=== PATIENT | female | born 1960 | race Caucasian/White ===

== ENCOUNTER 2018-05-27 14:14 | Emergency (ER) | payer MEDICAID ==
[~2018-05-27] VITALS: Ht 289.6 cm; Wt 77.0 kg
[~2018-05-27 14:14] MED LIST: ATOR10TA87 PO; BAC10T PO; BENA5TAB6 PO; CITA40TA17 PO; DILT180C89 PO; FEXO-124 PO; GABA-532 PO; HYDR-565 PO; LEVO500T2 PO; LEVO75TA7 PO; LIDO700A5 TOP; MELO-100 PO; METF10004 PO; METR500T PO; MIRT15TA8 PO; OMEP20CA10 PO; PROC5TAB56 PO; SITA100T11 PO
[2018-05-27] MEDS ORDERED: LORazepam 2 mg/ml vial IV ONE (14:35)
[2018-05-27] MEDS ORDERED: normal saline 1000ML IV soln IVB ONE (14:35)
[2018-05-27] MEDS ORDERED: methylPREDNISolone sod succ 125mg/2ml vial IV ONE (14:35)
[2018-05-27] MEDS ORDERED: albuterol 2.5 MG/3 ML nebule NEB ONE (14:35)
[2018-05-27] MEDS ORDERED: morphine 4 MG/ML inj SYRINge IV ONE (14:35)
[2018-05-27 14:36] LABS: BASOPHILS % (AUTO) 0.1 % (0-1); EOSINOPHILS # (AUTO) 0.1 X10'3 (0-0.9); HEMATOCRIT 40.1 % (35.0-45.0); HEMOGLOBIN 13.5 g/dl (12.0-16.0); LYMPHOCYTES % (AUTO) 20.8 % (21-51); MEAN CORPUSCULAR HEMOGLOBIN 29.5 PG (27.0-31.0); MEAN CORPUSCULAR HGB CONC 33.7 % (33.0-36.5); MEAN CORPUSCULAR VOLUME 87.4 FL (78-98); MEAN PLATELET VOLUME 8.8 FL (7.4-10.4); MONOCYTES # (AUTO) 0.7 X10'3 (0-0.9); MONOCYTES % (AUTO) 7.5 % (2-12); NEUTROPHILS # (AUTO) 6.8 X10'3 (1.8-7.7); NEUTROPHILS % (AUTO) 70.6 % (42-75); PLATELET COUNT 232 X10'3 (140-440); RED BLOOD COUNT 4.59 X10'6 (4.20-5.60); RED CELL DISTRIBUTION WIDTH 17.1 % (11.5-14.5); WHITE BLOOD COUNT 9.7 X10'3 (4.5-11.0)
[2018-05-27 14:46] LABS: PARTIAL THROMBOPLASTIN TIME 24 SECONDS (22-32); PROTHROMBIN TIME 10.2 SECONDS (9.0-12.0)
[2018-05-27 14:52] LABS: ALANINE AMINOTRANSFERASE 23 U/L (12-78); ALBUMIN 3.3 G/DL (3.4-5.0); ALBUMIN/GLOBULIN RATIO 1.1 (1.1-1.5); ALKALINE PHOSPHATASE 126 IU/L (46-116); ANION GAP 7 (8-16); ASPARTATE AMINO TRANSFERASE 16 U/L (10-37); BILIRUBIN,TOTAL 0.3 MG/DL (0.1-1.0); BLOOD UREA NITROGEN 16 MG/DL (7-18); BUN/CREATININE RATIO 13.7 (6.6-38.0); CALCIUM 8.5 MG/DL (8.5-10.1); CHLORIDE 107 MMOL/L (99-107); CREATININE 1.17 MG/DL (0.40-0.90); GLUCOSE 212 MG/DL (70-104); POTASSIUM 4.2 MMOL/L (3.5-5.1); SODIUM 139 MMOL/L (135-145); TOTAL PROTEIN 6.4 G/DL (6.4-8.2); eGFR 48 ML/MIN
[2018-05-27 15:03] VITALS: BP 116/82
== END 2018-05-27 16:46 | disposition home or self-care (01) ==
LOC: ER 14:14
DX: R07.9 Chest pain, unspecified (principal); J45.909 Unspecified asthma, uncomplicated; G43.909 Migraine, unspecified, not intractable, without status migrainosus; E78.00 Pure hypercholesterolemia, unspecified; I10 Essential (primary) hypertension; E11.9 Type 2 diabetes mellitus without complications; K21.9 Gastro-esophageal reflux disease without esophagitis; Z98.890 Other specified postprocedural states; Z56.0 Unemployment, unspecified
CPT/HCPCS: 36415; 71045; 80053; 84484; 85025; 85610; 85730; 93005; 94640; 94760; 96374; 96375; 99285; J2060; J2270; J2930; J7030

== ENCOUNTER 2018-07-28 21:45 | Emergency (ER) | payer MEDICAID ==
[~2018-07-28] VITALS: Ht 162.6 cm; Wt 79.0 kg
[~2018-07-28 21:45] MED LIST changes: +METF-438 PO; -METF10004 PO
[2018-07-28 21:47] VITALS: BP 148/85
[2018-07-28] MEDS ORDERED: SILV50CR31 TP (22:03)
[2018-07-28] MEDS ORDERED: silver sulfadiazine cream 400gm jar TP ONE (22:05)
[2018-07-28] MEDS ORDERED: ketorolac trometh inj. 60 MG/2 ML VIAL IM ONE (22:05)
== END 2018-07-28 22:20 | disposition home or self-care (01) ==
LOC: ER 21:46
DX: T21.22XA Burn of second degree of abdominal wall, initial encounter (principal); E78.00 Pure hypercholesterolemia, unspecified; I10 Essential (primary) hypertension; J45.909 Unspecified asthma, uncomplicated; K21.9 Gastro-esophageal reflux disease without esophagitis; E11.9 Type 2 diabetes mellitus without complications; G89.29 Other chronic pain; Z98.890 Other specified postprocedural states; Z56.0 Unemployment, unspecified; Z88.0 Allergy status to penicillin; Z79.899 Other long term (current) drug therapy; X08.8XXA Exposure to other specified smoke, fire and flames, initial encounter; Y93.G3 Activity, cooking and baking; Y92.090 Kitchen in other non-institutional residence as the place of occurrence of the external cause; Y99.8 Other external cause status
CPT/HCPCS: 96372; 99283; J1885

== ENCOUNTER 2018-08-02 18:23 | Emergency (ER) | payer MEDICAID ==
[~2018-08-02] VITALS: Ht 162.6 cm; Wt 79.0 kg
[~2018-08-02 18:23] MED LIST changes: +HYDR-4353 PO; -HYDR-565 PO; +SILV50CR31 TP
[2018-08-02 18:51] LABS: URINE HCG NEGATIVE (NEG)
[2018-08-02 18:56] LABS: BASOPHILS % (AUTO) 0.6 % (0-1); EOSINOPHILS # (AUTO) 0.1 X10'3 (0-0.9); EOSINOPHILS % (AUTO) 0.9 % (0-6); HEMATOCRIT 42.3 % (35.0-45.0); HEMOGLOBIN 14.1 g/dl (12.0-16.0); LYMPHOCYTES # (AUTO) 2.2 X10'3 (1.1-4.8); LYMPHOCYTES % (AUTO) 30.5 % (21-51); MEAN CORPUSCULAR HEMOGLOBIN 30.4 PG (27.0-31.0); MEAN CORPUSCULAR HGB CONC 33.4 % (33.0-36.5); MEAN CORPUSCULAR VOLUME 90.9 FL (78-98); MEAN PLATELET VOLUME 8.8 FL (7.4-10.4); MONOCYTES # (AUTO) 0.6 X10'3 (0-0.9); MONOCYTES % (AUTO) 8.9 % (2-12); NEUTROPHILS # (AUTO) 4.2 X10'3 (1.8-7.7); NEUTROPHILS % (AUTO) 59.1 % (42-75); PLATELET COUNT 229 X10'3 (140-440); RED BLOOD COUNT 4.66 X10'6 (4.20-5.60); RED CELL DISTRIBUTION WIDTH 13.6 % (11.5-14.5); WHITE BLOOD COUNT 7.1 X10'3 (4.5-11.0)
[2018-08-02 18:57] LABS: PROTHROMBIN TIME 10.4 SECONDS (9.0-12.0)
[2018-08-02 19:05] LABS: ALANINE AMINOTRANSFERASE 27 U/L (12-78); ALBUMIN 3.7 G/DL (3.4-5.0); ALBUMIN/GLOBULIN RATIO 1.1 (1.1-1.5); ALKALINE PHOSPHATASE 125 IU/L (46-116); ANION GAP 12 (8-16); ASPARTATE AMINO TRANSFERASE 18 U/L (10-37); BILIRUBIN,TOTAL 0.4 MG/DL (0.1-1.0); BLOOD UREA NITROGEN 16 MG/DL (7-18); BUN/CREATININE RATIO 14.2 (6.6-38.0); CALCIUM 9.1 MG/DL (8.5-10.1); CHLORIDE 108 MMOL/L (99-107); CREATININE 1.13 MG/DL (0.40-0.90); GLUCOSE 151 MG/DL (70-104); POTASSIUM 3.3 MMOL/L (3.5-5.1); SODIUM 145 MMOL/L (135-145); TOTAL CARBON DIOXIDE 24.7 MMOL/L (24-32); TOTAL PROTEIN 7.2 G/DL (6.4-8.2); eGFR 50 ML/MIN
[2018-08-02 19:14] LABS: COLOR,URINE YELLOW (Yellow); GLUCOSE, URINE NEGATIVE (Neg); KETONES,URINE NEGATIVE (Neg); LEUKOCYTE ESTERASE ,URINE SMALL (Neg); NITRITES, URINE NEGATIVE (Neg); OCCULT BLOOD,URINE NEGATIVE (Neg); PROTEIN,URINE TRACE mg/dl (Neg); UA COLLECTION TYPE CLN CATCH MIDSTREAM; UROBILINOGEN,URINE 0.2 E.U/dL (0.2-1.0)
[2018-08-02 19:15] LABS: CLARITY,URINE SLIGHTLY CLOUDY (Clear)
[2018-08-02] MEDS ORDERED: TOPI25TA49 (19:17)
[2018-08-02] MEDS ORDERED: ALOG25TA2 (19:17)
[2018-08-02] MEDS ORDERED: SUMA100T16 (19:17)
[2018-08-02] MEDS ORDERED: AMIT10TA6 (19:18)
[2018-08-02 19:22] LABS: BACTERIA,URINE 1+ /HPF (Neg); MUCUS STRANDS MANY /LPF (Neg); RBC,URINE NONE SEEN /HPF (0-2); SQUAMOUS EPITHELIAL CELL,UR MANY /LPF (FEW)
[2018-08-02] MEDS ORDERED: morphine 4 MG/ML inj SYRINge IV PRN (19:45)
[2018-08-02] MEDS ORDERED: normal saline 1000ML IV soln IVB ONE (19:45)
[2018-08-02] MEDS ORDERED: ondansetron/PF 4mg/2ml inj IV ONE (19:45)
[2018-08-02] MEDS ORDERED: metoclopramide 5 mg/ml inj IV ONE (19:45)
[2018-08-02 19:58] LABS: LIPASE 170 U/L (73-393)
[2018-08-02] MEDS ORDERED: SUCR1ORA2 PO (21:46)
[2018-08-02 22:00] VITALS: BP 146/93
== END 2018-08-02 22:07 | disposition home or self-care (01) ==
LOC: ER 18:24
DX: K29.80 Duodenitis without bleeding (principal); R10.84 Generalized abdominal pain; G43.909 Migraine, unspecified, not intractable, without status migrainosus; E78.00 Pure hypercholesterolemia, unspecified; I10 Essential (primary) hypertension; J45.909 Unspecified asthma, uncomplicated; K21.9 Gastro-esophageal reflux disease without esophagitis; G89.29 Other chronic pain; Z56.0 Unemployment, unspecified; Z98.890 Other specified postprocedural states; Z79.899 Other long term (current) drug therapy; Z88.0 Allergy status to penicillin
CPT/HCPCS: 36415; 74176; 80053; 81001; 81025; 83690; 85025; 85610; 96361; 96374; 96375; 99285; J2270; J2405; J2765; J7030

== ENCOUNTER 2018-12-18 15:19 | Outpatient (CLI) | payer MEDICAID ==
[~2018-12-18 15:19] MED LIST changes: +ALOG25TA2; +AMIT10TA6; -BAC10T PO; -LEVO500T2 PO; -LIDO700A5 TOP; -MELO-100 PO; -METR500T PO; -OMEP20CA10 PO; -SILV50CR31 TP; -SITA100T11 PO; +SUCR1ORA2 PO; +SUMA100T16; +TOPI25TA49
[2018-12-18 16:08] LABS: BASOPHILS # (AUTO) 0.1 X10'3 (0-0.2); BASOPHILS % (AUTO) 0.7 % (0-1); EOSINOPHILS # (AUTO) 1.5 X10'3 (0-0.9); EOSINOPHILS % (AUTO) 16.1 % (0-6); HEMATOCRIT 42.8 % (35.0-45.0); HEMOGLOBIN 14.1 g/dl (12.0-16.0); LYMPHOCYTES # (AUTO) 2.7 X10'3 (1.1-4.8); LYMPHOCYTES % (AUTO) 28.7 % (21-51); MEAN CORPUSCULAR HEMOGLOBIN 30.4 PG (27.0-31.0); MEAN CORPUSCULAR VOLUME 92.4 FL (78-98); MEAN PLATELET VOLUME 8.8 FL (7.4-10.4); MONOCYTES # (AUTO) 0.7 X10'3 (0-0.9); MONOCYTES % (AUTO) 6.9 % (2-12); NEUTROPHILS # (AUTO) 4.5 X10'3 (1.8-7.7); NEUTROPHILS % (AUTO) 47.6 % (42-75); PLATELET COUNT 233 X10'3 (140-440); RED BLOOD COUNT 4.64 X10'6 (4.20-5.60); RED CELL DISTRIBUTION WIDTH 14.6 % (11.5-14.5); WHITE BLOOD COUNT 9.5 X10'3 (4.5-11.0)
== END 2018-12-18 23:59 | disposition home or self-care (01) ==
LOC: LAB 15:19
PROVIDERS: ATTEND Physician Assistant
DX: M25.451 Effusion, right hip (principal); R00.0 Tachycardia, unspecified; I10 Essential (primary) hypertension; J45.909 Unspecified asthma, uncomplicated; E11.9 Type 2 diabetes mellitus without complications; K21.9 Gastro-esophageal reflux disease without esophagitis; Z88.0 Allergy status to penicillin; Z91.018 Allergy to other foods
CPT/HCPCS: 36415; 85025

== ENCOUNTER 2019-05-14 13:19 | Emergency (ER) | payer MEDICAID ==
[~2019-05-14] VITALS: Ht 162.6 cm; Wt 68.2 kg
[2019-05-14 13:59] VITALS: BP 166/104
[2019-05-14] MEDS ORDERED: acetaminophen 325mg tablet PO ONE (16:00)
== END 2019-05-14 17:01 | disposition home or self-care (01) ==
LOC: ER 13:20
DX: S70.01XA Contusion of right hip, initial encounter (principal); G43.909 Migraine, unspecified, not intractable, without status migrainosus; I49.9 Cardiac arrhythmia, unspecified; E78.00 Pure hypercholesterolemia, unspecified; I10 Essential (primary) hypertension; J45.909 Unspecified asthma, uncomplicated; K21.9 Gastro-esophageal reflux disease without esophagitis; E11.9 Type 2 diabetes mellitus without complications; E07.9 Disorder of thyroid, unspecified; G89.29 Other chronic pain; F32.9 Major depressive disorder, single episode, unspecified; Z98.890 Other specified postprocedural states; Z88.0 Allergy status to penicillin; Z79.84 Long term (current) use of oral hypoglycemic drugs; Z79.899 Other long term (current) drug therapy; Z56.0 Unemployment, unspecified; Y04.0XXA Assault by unarmed brawl or fight, initial encounter; Y93.89 Activity, other specified; Y92.89 Other specified places as the place of occurrence of the external cause; Y99.8 Other external cause status
CPT/HCPCS: 71045; 93005; 99283

== ENCOUNTER 2019-07-01 15:40 | Emergency (ER) | payer MEDICAID ==
[~2019-07-01] VITALS: Ht 162.6 cm; Wt 71.8 kg
[2019-07-01 15:52] VITALS: BP 121/88
[2019-07-01] MEDS ORDERED: HYDR-3965 PO (17:09)
[2019-07-01] MEDS ORDERED: HYDROcodone/acetaminophen 5mg/325mg tablet PO ONE (17:25)
== END 2019-07-01 17:58 | disposition home or self-care (01) ==
LOC: ER 15:41
DX: S62.525A Nondisplaced fracture of distal phalanx of left thumb, initial encounter for closed fracture (principal); G43.909 Migraine, unspecified, not intractable, without status migrainosus; E78.00 Pure hypercholesterolemia, unspecified; I10 Essential (primary) hypertension; J45.909 Unspecified asthma, uncomplicated; K21.9 Gastro-esophageal reflux disease without esophagitis; E11.9 Type 2 diabetes mellitus without complications; G89.29 Other chronic pain; Z56.0 Unemployment, unspecified; Z98.890 Other specified postprocedural states; Z88.0 Allergy status to penicillin; Z79.899 Other long term (current) drug therapy; W53.19XA Other contact with rat, initial encounter; Y93.89 Activity, other specified; Y92.89 Other specified places as the place of occurrence of the external cause; Y99.9 Unspecified external cause status
CPT/HCPCS: 29130; 73140; 99283

== ENCOUNTER 2019-08-25 08:47 | Emergency (ER) | payer MEDICAID ==
[~2019-08-25] VITALS: Ht 162.6 cm; Wt 69.0 kg
[2019-08-25] MEDS ORDERED: normal saline 1000ML IV soln IVB ONE (09:30)
[2019-08-25] MEDS ORDERED: diphenhydrAMINE 50 mg/ml inj IV ONE (09:30)
[2019-08-25] MEDS ORDERED: proCHLORperazine 10 MG/2 ml inj IV ONE (09:30)
[2019-08-25 12:26] VITALS: BP 131/99
== END 2019-08-25 12:26 | disposition home or self-care (01) ==
LOC: ER 08:47
DX: G43.909 Migraine, unspecified, not intractable, without status migrainosus (principal); E78.00 Pure hypercholesterolemia, unspecified; I10 Essential (primary) hypertension; J45.909 Unspecified asthma, uncomplicated; K21.9 Gastro-esophageal reflux disease without esophagitis; E11.9 Type 2 diabetes mellitus without complications; G89.29 Other chronic pain; F32.9 Major depressive disorder, single episode, unspecified; Z98.890 Other specified postprocedural states; Z56.0 Unemployment, unspecified; Z88.0 Allergy status to penicillin; Z79.84 Long term (current) use of oral hypoglycemic drugs; Z79.899 Other long term (current) drug therapy
CPT/HCPCS: 93005; 96374; 96375; 99283; J0780; J1200; J7030

== ENCOUNTER 2019-08-28 11:13 | Emergency (ER) | payer MEDICAID ==
[~2019-08-28] VITALS: Ht 162.6 cm; Wt 71.4 kg
[2019-08-28] MEDS ORDERED: normal saline 1000ML IV soln IVB ONE (12:45)
[2019-08-28] MEDS ORDERED: ondansetron/PF 4mg/2ml inj IV ONE (12:45)
[2019-08-28] MEDS ORDERED: LORazepam 2 mg/ml vial IV ONE (12:45)
[2019-08-28] MEDS ORDERED: HYDR-3964 PO (12:52)
[2019-08-28] MEDS ORDERED: METF500T PO (12:52)
[2019-08-28 13:44] LABS: BASOPHILS % (AUTO) 0.4 % (0-1); EOSINOPHILS % (AUTO) 0.1 % (0-6); HEMATOCRIT 43.2 % (35.0-45.0); HEMOGLOBIN 14.2 g/dl (12.0-16.0); LYMPHOCYTES % (AUTO) 10.7 % (21-51); MEAN CORPUSCULAR HEMOGLOBIN 30.9 PG (27.0-31.0); MEAN CORPUSCULAR VOLUME 93.6 FL (78-98); MEAN PLATELET VOLUME 8.4 FL (7.4-10.4); MONOCYTES # (AUTO) 0.4 X10'3 (0-0.9); MONOCYTES % (AUTO) 4.2 % (2-12); NEUTROPHILS # (AUTO) 8.3 X10'3 (1.8-7.7); NEUTROPHILS % (AUTO) 84.6 % (42-75); PLATELET COUNT 220 X10'3 (140-440); RED BLOOD COUNT 4.62 X10'6 (4.20-5.60); RED CELL DISTRIBUTION WIDTH 15.5 % (11.5-14.5); WHITE BLOOD COUNT 9.8 X10'3 (4.5-11.0)
[2019-08-28 13:59] LABS: ALANINE AMINOTRANSFERASE 39 U/L (12-78); ALBUMIN 3.6 G/DL (3.4-5.0); ALKALINE PHOSPHATASE 110 IU/L (46-116); ANION GAP 10 (8-16); ASPARTATE AMINO TRANSFERASE 14 U/L (10-37); BILIRUBIN,TOTAL 0.3 MG/DL (0.1-1.0); BLOOD UREA NITROGEN 17 MG/DL (7-18); BUN/CREATININE RATIO 17.5 (6.6-38.0); CALCIUM 9.3 MG/DL (8.5-10.1); CHLORIDE 107 MMOL/L (99-107); CREATININE 0.97 MG/DL (0.40-0.90); GLUCOSE 202 MG/DL (70-104); POTASSIUM 4.3 MMOL/L (3.5-5.1); SODIUM 143 MMOL/L (135-145); TOTAL CARBON DIOXIDE 26.2 MMOL/L (24-32); TOTAL PROTEIN 7.1 G/DL (6.4-8.2); eGFR 59 ML/MIN
[2019-08-28 14:07] LABS: MAGNESIUM 1.1 MG/DL (1.5-2.4)
[2019-08-28] MEDS ORDERED: iohexol 350MG/ML 100ml bottle IV ONE (14:13)
[2019-08-28] MEDS ORDERED: MECL12.584 PO (17:05)
[2019-08-28 17:48] VITALS: BP 107/65
[2019-08-29] MEDS ORDERED: DIAZ2TAB PO (04:52)
[2019-08-29] MEDS ORDERED: MAGN400C PO (04:52)
== END 2019-08-28 17:52 | disposition home or self-care (01) ==
LOC: ER 11:13
DX: R42 Dizziness and giddiness (principal); R11.2 Nausea with vomiting, unspecified; H53.8 Other visual disturbances; G89.29 Other chronic pain; G43.909 Migraine, unspecified, not intractable, without status migrainosus; E78.00 Pure hypercholesterolemia, unspecified; I10 Essential (primary) hypertension; J45.909 Unspecified asthma, uncomplicated; K21.9 Gastro-esophageal reflux disease without esophagitis; E11.9 Type 2 diabetes mellitus without complications; F32.9 Major depressive disorder, single episode, unspecified; F10.99 Alcohol use, unspecified with unspecified alcohol-induced disorder; Z98.890 Other specified postprocedural states; Z56.0 Unemployment, unspecified; Z88.0 Allergy status to penicillin; Z79.84 Long term (current) use of oral hypoglycemic drugs; Z79.899 Other long term (current) drug therapy; Y90.9 Presence of alcohol in blood, level not specified
CPT/HCPCS: 36415; 70551; 71045; 71260; 80053; 82948; 83735; 83880; 84484; 85025; 93005; 96361; 96374; 96375; 99284; J2060; J2405; J7030; Q9967; 70496; 70498

== ENCOUNTER 2019-08-29 01:07 | Emergency (ER) | payer MEDICAID ==
[~2019-08-29] VITALS: Ht 170.2 cm; Wt 64.0 kg
[~2019-08-29 01:07] MED LIST changes: -ALOG25TA2; -AMIT10TA6; +HYDR-3964 PO; -HYDR-4353 PO; +MECL12.584 PO; -METF-438 PO; +METF500T PO; -PROC5TAB56 PO; -SUCR1ORA2 PO; -SUMA100T16; -TOPI25TA49
[2019-08-29] MEDS ORDERED: diphenhydrAMINE 50 mg/ml inj IV ONE (01:15)
[2019-08-29] MEDS ORDERED: benztropine 1mg tablet PO ONE (01:52)
--- NOTE | 2019-08-29 02:18 | NUR ---
PT NOTES RESOLVING SYMPTOMS.
[2019-08-29] MEDS ORDERED: magnesium 2GM in 50ml NS 50 ML IV ONE (02:35)
[2019-08-29] MEDS ORDERED: magnesium oxide 400mg tablet PO ONE (02:35)
[2019-08-29] MEDS ORDERED: diazepam 5mg tablet PO ONE (02:40)
[2019-08-29] MEDS ORDERED: niCARDipine-NS 40mg/200ml IVPB 200 ML IV PRN (02:41)
[2019-08-29] MEDS ORDERED: normal saline 1000ML IV soln IVB ONE (02:45)
--- NOTE | 2019-08-29 03:37 | NUR ---
pt falling asleep and o2 saturation dropped to 87% pt has sleep apnea and usually uses a cpap at home, pt placed on 2l o2 via nasal cannula to increase oxygen saturation during sleep, current saturation now 97%
[2019-08-29] MEDS ORDERED: MAGN400C PO (04:52)
[2019-08-29] MEDS ORDERED: DIAZ2TAB PO (04:52)
[2019-08-29 05:16] VITALS: BP 138/93
[2019-08-30] MEDS ORDERED: DIAZ5TAB PO (08:55)
== END 2019-08-29 05:43 | disposition home or self-care (01) ==
LOC: ER 01:08
DX: R42 Dizziness and giddiness (principal); R25.1 Tremor, unspecified; E83.42 Hypomagnesemia; I45.81 Long QT syndrome; G43.909 Migraine, unspecified, not intractable, without status migrainosus; E78.00 Pure hypercholesterolemia, unspecified; I10 Essential (primary) hypertension; J45.909 Unspecified asthma, uncomplicated; K21.9 Gastro-esophageal reflux disease without esophagitis; E11.9 Type 2 diabetes mellitus without complications; G89.29 Other chronic pain; Z56.0 Unemployment, unspecified; Z98.890 Other specified postprocedural states; Z88.0 Allergy status to penicillin; Z79.899 Other long term (current) drug therapy
CPT/HCPCS: 93005; 96365; 96366; 96375; 99284; J1200; J3475; J7030

== ENCOUNTER 2019-08-30 07:14 | Emergency (ER) | payer MEDICAID ==
[~2019-08-30] VITALS: Ht 162.6 cm; Wt 71.4 kg
[~2019-08-30 07:14] MED LIST changes: +ALOG25TA2; +AMIT10TA6; +DIAZ2TAB PO; +HYDR-4353 PO; +MAGN400C PO; +METF-438 PO; +PROC5TAB56 PO; +SUCR1ORA2 PO; +SUMA100T16; +TOPI25TA49
[2019-08-30 07:56] VITALS: BP 164/108
[2019-08-30 08:16] LABS: BASOPHILS # (AUTO) 0.1 X10'3 (0-0.2); BASOPHILS % (AUTO) 0.7 % (0-1); EOSINOPHILS % (AUTO) 0.4 % (0-6); HEMATOCRIT 40.3 % (35.0-45.0); HEMOGLOBIN 13.5 g/dl (12.0-16.0); LYMPHOCYTES # (AUTO) 2.4 X10'3 (1.1-4.8); LYMPHOCYTES % (AUTO) 23.3 % (21-51); MEAN CORPUSCULAR HEMOGLOBIN 30.8 PG (27.0-31.0); MEAN CORPUSCULAR HGB CONC 33.4 g/dL (33.0-36.5); MEAN CORPUSCULAR VOLUME 92.2 FL (78-98); MEAN PLATELET VOLUME 7.8 FL (7.4-10.4); MONOCYTES # (AUTO) 0.8 X10'3 (0-0.9); NEUTROPHILS # (AUTO) 6.8 X10'3 (1.8-7.7); NEUTROPHILS % (AUTO) 67.6 % (42-75); PLATELET COUNT 231 X10'3 (140-440); RED BLOOD COUNT 4.37 X10'6 (4.20-5.60); RED CELL DISTRIBUTION WIDTH 15.8 % (11.5-14.5); WHITE BLOOD COUNT 10.1 X10'3 (4.5-11.0)
[2019-08-30 08:29] LABS: ALANINE AMINOTRANSFERASE 30 U/L (12-78); ALBUMIN 3.1 G/DL (3.4-5.0); ALBUMIN/GLOBULIN RATIO 1.1 (1.1-1.5); ALKALINE PHOSPHATASE 95 IU/L (46-116); ANION GAP 11 (8-16); ASPARTATE AMINO TRANSFERASE 17 U/L (10-37); BILIRUBIN,TOTAL 0.4 MG/DL (0.1-1.0); BLOOD UREA NITROGEN 15 MG/DL (7-18); BUN/CREATININE RATIO 13.3 (6.6-38.0); CHLORIDE 110 MMOL/L (99-107); CREATININE 1.13 MG/DL (0.40-0.90); GLUCOSE 151 MG/DL (70-104); MAGNESIUM 1.5 MG/DL (1.5-2.4); POTASSIUM 4.4 MMOL/L (3.5-5.1); SODIUM 144 MMOL/L (135-145); TOTAL CARBON DIOXIDE 23.4 MMOL/L (24-32); eGFR 50 ML/MIN
[2019-08-30] MEDS ORDERED: DIAZ5TAB PO (08:55)
== END 2019-08-30 09:19 | disposition home or self-care (01) ==
LOC: ER 07:14
DX: F44.9 Dissociative and conversion disorder, unspecified (principal); G43.909 Migraine, unspecified, not intractable, without status migrainosus; E78.00 Pure hypercholesterolemia, unspecified; I10 Essential (primary) hypertension; J45.909 Unspecified asthma, uncomplicated; K21.9 Gastro-esophageal reflux disease without esophagitis; E11.9 Type 2 diabetes mellitus without complications; G89.29 Other chronic pain; F32.9 Major depressive disorder, single episode, unspecified; F10.99 Alcohol use, unspecified with unspecified alcohol-induced disorder; Z98.890 Other specified postprocedural states; Z56.0 Unemployment, unspecified; Z88.0 Allergy status to penicillin; Z91.018 Allergy to other foods; Z79.84 Long term (current) use of oral hypoglycemic drugs; Z79.899 Other long term (current) drug therapy; Y90.9 Presence of alcohol in blood, level not specified
CPT/HCPCS: 36415; 80053; 83735; 85025; 99283

== ENCOUNTER 2019-09-07 09:16 | Emergency (ER) | payer MEDICAID ==
[~2019-09-07] VITALS: Ht 162.6 cm; Wt 70.0 kg
[~2019-09-07 09:16] MED LIST changes: -ALOG25TA2; -AMIT10TA6; +DIAZ5TAB PO; -HYDR-4353 PO; -METF-438 PO; -PROC5TAB56 PO; -SUCR1ORA2 PO; -SUMA100T16; -TOPI25TA49
--- NOTE | 2019-09-07 10:01 | NUR ---
UPDATED PATIENT AWAITING TECH FOR SPLINT, HAVE ASKED TECH TO SPLINT X 3, GAVE NEW ICE BAG FOR PAIN
[2019-09-07 10:02] VITALS: BP 184/83
--- NOTE | 2019-09-07 10:03 | NUR ---
TECH IN ROOM, PLACING SPLINT
== END 2019-09-07 11:05 | disposition home or self-care (01) ==
LOC: ER 09:17
DX: M79.672 Pain in left foot (principal); G43.909 Migraine, unspecified, not intractable, without status migrainosus; E78.00 Pure hypercholesterolemia, unspecified; I10 Essential (primary) hypertension; J45.909 Unspecified asthma, uncomplicated; K21.9 Gastro-esophageal reflux disease without esophagitis; E11.9 Type 2 diabetes mellitus without complications; G89.29 Other chronic pain; Z56.0 Unemployment, unspecified; Z98.890 Other specified postprocedural states; Z88.0 Allergy status to penicillin; Z91.018 Allergy to other foods; Z79.899 Other long term (current) drug therapy
CPT/HCPCS: 73610; 99284

== ENCOUNTER 2019-09-17 09:11 | Outpatient (CLI) | payer MEDICAID ==
[2019-09-17 09:19] VITALS: BP 143/85
== END 2019-09-17 09:47 | disposition home or self-care (01) ==
LOC: ORTHO 09:11
PROVIDERS: ATTEND Orthopaedic Surgery
DX: M76.62 Achilles tendinitis, left leg (principal); G43.909 Migraine, unspecified, not intractable, without status migrainosus; I10 Essential (primary) hypertension; J45.909 Unspecified asthma, uncomplicated; K21.9 Gastro-esophageal reflux disease without esophagitis; E11.9 Type 2 diabetes mellitus without complications; G89.29 Other chronic pain; M54.5 Low back pain; F32.9 Major depressive disorder, single episode, unspecified; Z88.0 Allergy status to penicillin; Z91.018 Allergy to other foods; Z79.84 Long term (current) use of oral hypoglycemic drugs; Z79.899 Other long term (current) drug therapy
CPT/HCPCS: G0463

== ENCOUNTER 2019-11-01 10:51 | Emergency (ER) | payer MEDICAID ==
[~2019-11-01] VITALS: Ht 162.6 cm; Wt 80.0 kg
[2019-11-01 11:08] VITALS: BP 161/88
== END 2019-11-01 13:42 | disposition home or self-care (01) ==
LOC: ER 10:52
DX: S96.811A Strain of other specified muscles and tendons at ankle and foot level, right foot, initial encounter (principal); I10 Essential (primary) hypertension; J45.909 Unspecified asthma, uncomplicated; K21.9 Gastro-esophageal reflux disease without esophagitis; F32.9 Major depressive disorder, single episode, unspecified; E11.9 Type 2 diabetes mellitus without complications; G43.909 Migraine, unspecified, not intractable, without status migrainosus; E78.00 Pure hypercholesterolemia, unspecified; G89.29 Other chronic pain; Z98.890 Other specified postprocedural states; Z56.0 Unemployment, unspecified; Z88.0 Allergy status to penicillin; Z79.899 Other long term (current) drug therapy; Z79.84 Long term (current) use of oral hypoglycemic drugs; X50.1XXA Overexertion from prolonged static or awkward postures, initial encounter; Y93.89 Activity, other specified; Y92.89 Other specified places as the place of occurrence of the external cause; Y99.8 Other external cause status
CPT/HCPCS: 29515; 73610; 99284

== ENCOUNTER 2019-11-21 17:32 | Emergency (ER) | payer MEDICAID ==
[~2019-11-21] VITALS: Ht 162.6 cm; Wt 77.0 kg
[~2019-11-21 17:32] MED LIST changes: +MECL-183 PO; -MECL12.584 PO
[2019-11-21 18:32] LABS: BASOPHILS # (AUTO) 0.1 X10'3 (0-0.2); BASOPHILS % (AUTO) 1.4 % (0-1); EOSINOPHILS # (AUTO) 0.1 X10'3 (0-0.9); EOSINOPHILS % (AUTO) 0.6 % (0-6); HEMATOCRIT 40.2 % (35.0-45.0); HEMOGLOBIN 13.3 g/dl (12.0-16.0); LYMPHOCYTES % (AUTO) 18.4 % (21-51); MEAN CORPUSCULAR HEMOGLOBIN 30.2 PG (27.0-31.0); MEAN CORPUSCULAR HGB CONC 33.2 g/dL (33.0-36.5); MEAN CORPUSCULAR VOLUME 90.9 FL (78-98); MEAN PLATELET VOLUME 8.1 FL (7.4-10.4); MONOCYTES # (AUTO) 0.9 X10'3 (0-0.9); NEUTROPHILS # (AUTO) 7.7 X10'3 (1.8-7.7); NEUTROPHILS % (AUTO) 71.6 % (42-75); PLATELET COUNT 267 X10'3 (140-440); RED BLOOD COUNT 4.42 X10'6 (4.20-5.60); RED CELL DISTRIBUTION WIDTH 14.9 % (11.5-14.5); WHITE BLOOD COUNT 10.7 X10'3 (4.5-11.0)
[2019-11-21 18:38] LABS: ALANINE AMINOTRANSFERASE 34 U/L (12-78); ALBUMIN 3.8 G/DL (3.4-5.0); ALBUMIN/GLOBULIN RATIO 1.3 (1.1-1.5); ALKALINE PHOSPHATASE 120 IU/L (46-116); ANION GAP 12 (8-16); ASPARTATE AMINO TRANSFERASE 17 U/L (10-37); BILIRUBIN,TOTAL 0.2 MG/DL (0.1-1.0); BLOOD UREA NITROGEN 37 MG/DL (7-18); BUN/CREATININE RATIO 23.3 (6.6-38.0); CALCIUM 8.5 MG/DL (8.5-10.1); CHLORIDE 105 MMOL/L (99-107); CREATININE 1.59 MG/DL (0.40-0.90); GLUCOSE 140 MG/DL (70-104); SODIUM 142 MMOL/L (135-145); TOTAL CARBON DIOXIDE 25.3 MMOL/L (24-32); TOTAL PROTEIN 6.8 G/DL (6.4-8.2); eGFR 33 ML/MIN
[2019-11-21 19:14] LABS: MAGNESIUM 1.6 MG/DL (1.5-2.4)
[2019-11-21] MEDS ORDERED: diazepam inj 5 MG/ML inj. IV ONE (19:15)
[2019-11-21] MEDS ORDERED: normal saline 1000ML IV soln IVB ONE (19:15)
[2019-11-21] MEDS ORDERED: meclizine 12.5mg tablet PO ONE (19:15)
--- NOTE | 2019-11-21 20:46 | NUR ---
Pt able to complete gait test with no complications. Pt reports dizziness has improved.
[2019-11-21] MEDS ORDERED: MECL-159 PO (21:21)
[2019-11-21] MEDS ORDERED: DIAZ2TAB PO (21:21)
[2019-11-21 21:46] VITALS: BP 84/123
== END 2019-11-21 21:44 | disposition home or self-care (01) ==
LOC: ER 17:32
DX: R42 Dizziness and giddiness (principal); G43.909 Migraine, unspecified, not intractable, without status migrainosus; E78.00 Pure hypercholesterolemia, unspecified; J45.909 Unspecified asthma, uncomplicated; K21.9 Gastro-esophageal reflux disease without esophagitis; E11.9 Type 2 diabetes mellitus without complications; G89.29 Other chronic pain; F32.9 Major depressive disorder, single episode, unspecified; F10.99 Alcohol use, unspecified with unspecified alcohol-induced disorder; Z98.890 Other specified postprocedural states; Z56.0 Unemployment, unspecified; Z88.0 Allergy status to penicillin; Z91.018 Allergy to other foods; Z79.84 Long term (current) use of oral hypoglycemic drugs; Z79.899 Other long term (current) drug therapy; Y90.9 Presence of alcohol in blood, level not specified
CPT/HCPCS: 36415; 71045; 80053; 83735; 84484; 85025; 93005; 96361; 96374; 99284; J3360; J7030; J8597

== ENCOUNTER 2020-03-16 13:18 | Emergency (ER) | payer MEDICAID ==
[~2020-03-16] VITALS: Ht 162.6 cm; Wt 73.0 kg
[~2020-03-16 13:18] MED LIST changes: +MECL-159 PO
[2020-03-16 14:34] LABS: BASOPHILS # (AUTO) 0.1 X10'3 (0-0.2); BASOPHILS % (AUTO) 0.8 % (0-1); EOSINOPHILS # (AUTO) 0.1 X10'3 (0-0.9); EOSINOPHILS % (AUTO) 1.1 % (0-6); HEMATOCRIT 41.8 % (35.0-45.0); HEMOGLOBIN 13.7 g/dl (12.0-16.0); LYMPHOCYTES % (AUTO) 28.9 % (21-51); MEAN CORPUSCULAR HGB CONC 32.9 g/dL (33.0-36.5); MEAN CORPUSCULAR VOLUME 91.4 FL (78-98); MEAN PLATELET VOLUME 8.1 FL (7.4-10.4); MONOCYTES # (AUTO) 0.6 X10'3 (0-0.9); MONOCYTES % (AUTO) 8.5 % (2-12); NEUTROPHILS # (AUTO) 4.2 X10'3 (1.8-7.7); NEUTROPHILS % (AUTO) 60.7 % (42-75); PLATELET COUNT 246 X10'3 (140-440); RED BLOOD COUNT 4.57 X10'6 (4.20-5.60); RED CELL DISTRIBUTION WIDTH 16.5 % (11.5-14.5); WHITE BLOOD COUNT 6.9 X10'3 (4.5-11.0)
[2020-03-16 14:45] LABS: ALANINE AMINOTRANSFERASE 21 U/L (12-78); ALBUMIN 3.7 G/DL (3.4-5.0); ALBUMIN/GLOBULIN RATIO 1.2 (1.1-1.5); ALKALINE PHOSPHATASE 106 IU/L (46-116); ANION GAP 11 (8-16); ASPARTATE AMINO TRANSFERASE 15 U/L (10-37); BILIRUBIN,TOTAL 0.3 MG/DL (0.1-1.0); BLOOD UREA NITROGEN 23 MG/DL (7-18); BUN/CREATININE RATIO 19.7 (6.6-38.0); CALCIUM 9.3 MG/DL (8.5-10.1); CHLORIDE 106 MMOL/L (99-107); CREATININE 1.17 MG/DL (0.40-0.90); GLUCOSE 125 MG/DL (70-104); LIPASE 378 U/L (73-393); POTASSIUM 4.4 MMOL/L (3.5-5.1); SODIUM 141 MMOL/L (135-145); TOTAL CARBON DIOXIDE 24.2 MMOL/L (24-32); TOTAL PROTEIN 6.7 G/DL (6.4-8.2); eGFR 48 ML/MIN
[2020-03-16] MEDS ORDERED: normal saline 1000ML IV soln IVB ONE ×2 (14:45→15:50)
[2020-03-16] MEDS ORDERED: ketorolac trometh. 30mg/ml inj. IV ONE (16:50)
[2020-03-16 17:18] LABS: URINE HCG NEGATIVE (NEG)
[2020-03-16 17:27] LABS: CLARITY,URINE SLIGHTLY CLOUDY (Clear); COLOR,URINE YELLOW (Yellow); GLUCOSE, URINE NEGATIVE (Neg); KETONES,URINE NEGATIVE (Neg); LEUKOCYTE ESTERASE ,URINE MODERATE (Neg); NITRITES, URINE NEGATIVE (Neg); OCCULT BLOOD,URINE NEGATIVE (Neg); PROTEIN,URINE NEGATIVE (Neg); UROBILINOGEN,URINE 0.2 E.U/dL (0.2-1.0)
[2020-03-16 17:31] LABS: UA COLLECTION TYPE CLN CATCH MIDSTREAM
[2020-03-16 17:34] LABS: BACTERIA,URINE 1+ /HPF (Neg); HYALINE CASTS 0-3 /LPF (NEGATIVE); MUCUS STRANDS FEW /LPF (Neg); RBC,URINE NONE SEEN /HPF (0-2); RENAL CELLS, URINE FEW /HPF; SQUAMOUS EPITHELIAL CELL,UR MODERATE /LPF (FEW); TRANSITIONAL EPI CELLS,URINE FEW /HPF
[2020-03-16] MEDS ORDERED: CEPH500C5 PO (18:01)
[2020-03-16 18:10] VITALS: BP 141/88
== END 2020-03-16 18:11 | disposition home or self-care (01) ==
LOC: ER 13:19
DX: K57.90 Diverticulosis of intestine, part unspecified, without perforation or abscess without bleeding (principal); R10.84 Generalized abdominal pain; E86.0 Dehydration; E78.00 Pure hypercholesterolemia, unspecified; I10 Essential (primary) hypertension; J45.909 Unspecified asthma, uncomplicated; K21.9 Gastro-esophageal reflux disease without esophagitis; E11.9 Type 2 diabetes mellitus without complications; G89.29 Other chronic pain; F32.9 Major depressive disorder, single episode, unspecified; Z98.890 Other specified postprocedural states; Z72.89 Other problems related to lifestyle; Z56.0 Unemployment, unspecified; Z88.0 Allergy status to penicillin; Z91.018 Allergy to other foods; Z79.2 Long term (current) use of antibiotics; Z79.899 Other long term (current) drug therapy
CPT/HCPCS: 36415; 74176; 80053; 81001; 81025; 83690; 85025; 87088; 96361; 96374; 99284; J1885; J7030

== ENCOUNTER 2020-05-19 14:42 | Emergency (ER) | payer MEDICAID ==
[~2020-05-19] VITALS: Ht 162.6 cm; Wt 75.5 kg
[2020-05-19 15:05] LABS: BASOPHILS # (AUTO) 0.1 X10'3 (0-0.2); BASOPHILS % (AUTO) 0.5 % (0-1); EOSINOPHILS # (AUTO) 0.1 X10'3 (0-0.9); EOSINOPHILS % (AUTO) 0.6 % (0-6); HEMATOCRIT 40.3 % (35.0-45.0); LYMPHOCYTES # (AUTO) 1.3 X10'3 (1.1-4.8); LYMPHOCYTES % (AUTO) 9.5 % (21-51); MEAN CORPUSCULAR HEMOGLOBIN 29.6 PG (27.0-31.0); MEAN CORPUSCULAR HGB CONC 32.3 g/dL (33.0-36.5); MEAN CORPUSCULAR VOLUME 91.7 FL (78-98); MEAN PLATELET VOLUME 8.3 FL (7.4-10.4); MONOCYTES # (AUTO) 0.8 X10'3 (0-0.9); MONOCYTES % (AUTO) 6.3 % (2-12); NEUTROPHILS # (AUTO) 11.2 X10'3 (1.8-7.7); NEUTROPHILS % (AUTO) 83.1 % (42-75); PLATELET COUNT 223 X10'3 (140-440); RED BLOOD COUNT 4.39 X10'6 (4.20-5.60); RED CELL DISTRIBUTION WIDTH 14.6 % (11.5-14.5); WHITE BLOOD COUNT 13.4 X10'3 (4.5-11.0)
[2020-05-19 15:06] LABS: CLARITY,URINE CLOUDY (Clear); COLOR,URINE YELLOW (Yellow); GLUCOSE, URINE NEGATIVE (Neg); KETONES,URINE NEGATIVE (Neg); LEUKOCYTE ESTERASE ,URINE MODERATE (Neg); NITRITES, URINE NEGATIVE (Neg); OCCULT BLOOD,URINE NEGATIVE (Neg); PH,URINE 5.5 (4.8-8.0); PROTEIN,URINE NEGATIVE (Neg); UROBILINOGEN,URINE 0.2 E.U/dL (0.2-1.0)
[2020-05-19 15:07] LABS: URINE HCG NEGATIVE (NEG)
[2020-05-19 15:09] LABS: UA COLLECTION TYPE CLN CATCH MIDSTREAM
[2020-05-19 15:11] LABS: SQUAMOUS EPITHELIAL CELL,UR MANY /LPF (FEW)
[2020-05-19 15:12] LABS: MUCUS STRANDS FEW /LPF (Neg); TRANSITIONAL EPI CELLS,URINE MODERATE /HPF
[2020-05-19 15:13] LABS: BACTERIA,URINE 2+ /HPF (Neg); RBC,URINE 0-2 /HPF (0-2); RENAL CELLS, URINE FEW /HPF
[2020-05-19 15:18] LABS: ALANINE AMINOTRANSFERASE 18 U/L (12-78); ALBUMIN 3.8 G/DL (3.4-5.0); ALBUMIN/GLOBULIN RATIO 1.2 (1.1-1.5); ALKALINE PHOSPHATASE 100 IU/L (46-116); ANION GAP 13 (8-16); ASPARTATE AMINO TRANSFERASE 14 U/L (10-37); BILIRUBIN,TOTAL 0.4 MG/DL (0.1-1.0); BLOOD UREA NITROGEN 30 MG/DL (7-18); BUN/CREATININE RATIO 18.8 (6.6-38.0); CALCIUM 9.3 MG/DL (8.5-10.1); CHLORIDE 109 MMOL/L (99-107); GLUCOSE 166 MG/DL (70-104); LIPASE 151 U/L (73-393); POTASSIUM 4.8 MMOL/L (3.5-5.1); SODIUM 143 MMOL/L (135-145); TOTAL CARBON DIOXIDE 20.7 MMOL/L (24-32); eGFR 33 ML/MIN
[2020-05-19] MEDS ORDERED: normal saline 1000ML IV soln IVB ONE ×3 (15:25→16:55)
[2020-05-19] MEDS ORDERED: ondansetron/PF 4mg/2ml inj IV ONE (15:25)
[2020-05-19] MEDS ORDERED: CefTRIAXone 2gm/D5W 50ml 50 ML IV ONE (15:55)
[2020-05-19] MEDS ORDERED: CefTRIAXone inj 2,000 MG in normal saline 100ml IV soln 100 ML IV ONE (15:58)
[2020-05-19 17:06] LABS: COLOR,URINE YELLOW (Yellow); GLUCOSE, URINE NEGATIVE (Neg); KETONES,URINE NEGATIVE (Neg); LEUKOCYTE ESTERASE ,URINE TRACE (Neg); OCCULT BLOOD,URINE NEGATIVE (Neg); PH,URINE 5.5 (4.8-8.0); PROTEIN,URINE NEGATIVE (Neg); UROBILINOGEN,URINE 0.2 E.U/dL (0.2-1.0)
[2020-05-19 17:15] LABS: CLARITY,URINE SLIGHTLY CLOUDY (Clear); NITRITES, URINE NEGATIVE (Neg); UA COLLECTION TYPE CLN CATCH MIDSTREAM
[2020-05-19] MEDS ORDERED: ONDA4TAB6 PO (17:15)
[2020-05-19] MEDS ORDERED: LACT1CAP60 PO (17:15)
[2020-05-19] MEDS ORDERED: CEPH-572 PO ×2 (17:15→17:21)
[2020-05-19 17:17] LABS: BACTERIA,URINE FEW /HPF (Neg); RBC,URINE NONE SEEN /HPF (0-2); WBC,URINE 0-4 /HPF (0-4)
[2020-05-19 17:18] LABS: MUCUS STRANDS FEW /LPF (Neg); SQUAMOUS EPITHELIAL CELL,UR FEW /LPF (FEW)
[2020-05-19 17:19] LABS: CELLULAR CAST 0-4 /LPF (NEGATIVE); RENAL CELLS, URINE FEW /HPF; TRANSITIONAL EPI CELLS,URINE MODERATE /HPF; WBC CLUMPS,URINE FEW /HPF (NEGATIVE)
[2020-05-19 18:06] VITALS: BP 137/50
== END 2020-05-19 18:12 | disposition home or self-care (01) ==
LOC: ER 14:43
DX: N39.0 Urinary tract infection, site not specified (principal); N17.9 Acute kidney failure, unspecified; I12.9 Hypertensive chronic kidney disease with stage 1 through stage 4 chronic kidney disease, or unspecified chronic kidney disease; E11.22 Type 2 diabetes mellitus with diabetic chronic kidney disease; N18.9 Chronic kidney disease, unspecified; R11.2 Nausea with vomiting, unspecified; G43.909 Migraine, unspecified, not intractable, without status migrainosus; E78.00 Pure hypercholesterolemia, unspecified; I10 Essential (primary) hypertension; J45.909 Unspecified asthma, uncomplicated; K21.9 Gastro-esophageal reflux disease without esophagitis; G89.29 Other chronic pain; F32.9 Major depressive disorder, single episode, unspecified; Z90.49 Acquired absence of other specified parts of digestive tract; Z98.890 Other specified postprocedural states; Z72.89 Other problems related to lifestyle; Z56.0 Unemployment, unspecified; Z88.0 Allergy status to penicillin; Z91.018 Allergy to other foods; Z79.2 Long term (current) use of antibiotics; Z79.899 Other long term (current) drug therapy
CPT/HCPCS: 36415; 80053; 81001; 81025; 83605; 83690; 84145; 85025; 87040; 87088; 93005; 96361; 96365; 96375; 99284; J0696; J2405; J7030

== ENCOUNTER 2020-06-17 14:09 | Emergency (ER) | payer MEDICAID ==
[~2020-06-17] VITALS: Ht 162.6 cm; Wt 73.6 kg
[~2020-06-17 14:09] MED LIST changes: +CEPH-572 PO; +LACT1CAP60 PO; +ONDA4TAB6 PO
[2020-06-17 15:16] LABS: URINE HCG NEGATIVE (NEG)
[2020-06-17 15:18] LABS: CLARITY,URINE CLEAR (Clear); COLOR,URINE YELLOW (Yellow); GLUCOSE, URINE NEGATIVE (Neg); KETONES,URINE NEGATIVE (Neg); LEUKOCYTE ESTERASE ,URINE NEGATIVE (Neg); NITRITES, URINE NEGATIVE (Neg); OCCULT BLOOD,URINE NEGATIVE (Neg); PH,URINE 5.5 (4.8-8.0); PROTEIN,URINE TRACE mg/dl (Neg); UROBILINOGEN,URINE 0.2 E.U/dL (0.2-1.0)
[2020-06-17 15:24] LABS: UA COLLECTION TYPE CLN CATCH MIDSTREAM
[2020-06-17 15:25] LABS: BACTERIA,URINE FEW /HPF (Neg); MUCUS STRANDS FEW /LPF (Neg); RBC,URINE 0-2 /HPF (0-2); SQUAMOUS EPITHELIAL CELL,UR MODERATE /LPF (FEW); WBC,URINE 0-4 /HPF (0-4)
[2020-06-17 15:59] LABS: BASOPHILS # (AUTO) 0.1 X10'3 (0-0.2); BASOPHILS % (AUTO) 0.5 % (0-1); EOSINOPHILS % (AUTO) 0.1 % (0-6); HEMATOCRIT 40.6 % (35.0-45.0); LYMPHOCYTES # (AUTO) 0.8 X10'3 (1.1-4.8); LYMPHOCYTES % (AUTO) 6.2 % (21-51); MEAN CORPUSCULAR HEMOGLOBIN 29.9 PG (27.0-31.0); MEAN CORPUSCULAR HGB CONC 32.1 g/dL (33.0-36.5); MEAN CORPUSCULAR VOLUME 93.2 FL (78-98); MEAN PLATELET VOLUME 8.2 FL (7.4-10.4); MONOCYTES # (AUTO) 1.2 X10'3 (0-0.9); MONOCYTES % (AUTO) 8.9 % (2-12); NEUTROPHILS # (AUTO) 10.9 X10'3 (1.8-7.7); NEUTROPHILS % (AUTO) 84.3 % (42-75); PLATELET COUNT 252 X10'3 (140-440); RED BLOOD COUNT 4.36 X10'6 (4.20-5.60); RED CELL DISTRIBUTION WIDTH 14.6 % (11.5-14.5)
[2020-06-17 16:13] LABS: ALANINE AMINOTRANSFERASE 25 U/L (12-78); ALBUMIN 3.9 G/DL (3.4-5.0); ALBUMIN/GLOBULIN RATIO 1.2 (1.1-1.5); ALKALINE PHOSPHATASE 106 IU/L (46-116); ANION GAP 14 (8-16); ASPARTATE AMINO TRANSFERASE 17 U/L (10-37); BILIRUBIN,TOTAL 0.4 MG/DL (0.1-1.0); BLOOD UREA NITROGEN 31 MG/DL (7-18); BUN/CREATININE RATIO 15.9 (6.6-38.0); CALCIUM 9.4 MG/DL (8.5-10.1); CHLORIDE 109 MMOL/L (99-107); CREATININE 1.95 MG/DL (0.40-0.90); GLUCOSE 208 MG/DL (70-104); LIPASE 93 U/L (73-393); POTASSIUM 4.2 MMOL/L (3.5-5.1); SODIUM 145 MMOL/L (135-145); TOTAL CARBON DIOXIDE 21.7 MMOL/L (24-32); TOTAL PROTEIN 7.1 G/DL (6.4-8.2); eGFR 26 ML/MIN
[2020-06-17] MEDS ORDERED: proCHLORperazine 10 MG/2 ml inj IV STA (16:34)
[2020-06-17] MEDS ORDERED: normal saline 1000ML IV soln IVB ONE (16:35)
[2020-06-17 17:31] VITALS: BP 105/60
== END 2020-06-17 17:40 | disposition home or self-care (01) ==
LOC: ER 14:09
DX: R10.13 Epigastric pain (principal); R11.2 Nausea with vomiting, unspecified; G43.909 Migraine, unspecified, not intractable, without status migrainosus; E78.00 Pure hypercholesterolemia, unspecified; I10 Essential (primary) hypertension; J45.909 Unspecified asthma, uncomplicated; K21.9 Gastro-esophageal reflux disease without esophagitis; E11.9 Type 2 diabetes mellitus without complications; G89.29 Other chronic pain; F32.9 Major depressive disorder, single episode, unspecified; Z90.49 Acquired absence of other specified parts of digestive tract; Z98.890 Other specified postprocedural states; Z72.89 Other problems related to lifestyle; Z56.0 Unemployment, unspecified; Z88.0 Allergy status to penicillin; Z91.018 Allergy to other foods; Z79.899 Other long term (current) drug therapy
CPT/HCPCS: 36415; 80053; 81001; 81025; 83690; 85025; 96374; 99283; J0780; J7030

== ENCOUNTER 2020-06-23 18:19 | Emergency (ER) | payer MEDICAID ==
[~2020-06-23] VITALS: Ht 162.6 cm; Wt 73.6 kg
[2020-06-23 19:07] LABS: URINE HCG NEGATIVE (NEG)
[2020-06-23 19:08] LABS: BASOPHILS # (AUTO) 0.1 X10'3 (0-0.2); BASOPHILS % (AUTO) 0.9 % (0-1); EOSINOPHILS % (AUTO) 0.7 % (0-6); HEMATOCRIT 38.8 % (35.0-45.0); HEMOGLOBIN 12.5 g/dl (12.0-16.0); LYMPHOCYTES # (AUTO) 1.1 X10'3 (1.1-4.8); LYMPHOCYTES % (AUTO) 15.5 % (21-51); MEAN CORPUSCULAR HEMOGLOBIN 29.4 PG (27.0-31.0); MEAN CORPUSCULAR HGB CONC 32.2 g/dL (33.0-36.5); MEAN CORPUSCULAR VOLUME 91.5 FL (78-98); MEAN PLATELET VOLUME 9.1 FL (7.4-10.4); MONOCYTES # (AUTO) 0.4 X10'3 (0-0.9); MONOCYTES % (AUTO) 6.1 % (2-12); NEUTROPHILS # (AUTO) 5.4 X10'3 (1.8-7.7); NEUTROPHILS % (AUTO) 76.8 % (42-75); PLATELET COUNT 230 X10'3 (140-440); RED BLOOD COUNT 4.24 X10'6 (4.20-5.60); RED CELL DISTRIBUTION WIDTH 14.4 % (11.5-14.5)
[2020-06-23 19:19] LABS: CLARITY,URINE SLIGHTLY CLOUDY (Clear); COLOR,URINE YELLOW (Yellow); GLUCOSE, URINE NEGATIVE (Neg); KETONES,URINE NEGATIVE (Neg); LEUKOCYTE ESTERASE ,URINE SMALL (Neg); NITRITES, URINE NEGATIVE (Neg); OCCULT BLOOD,URINE TRACE-LYSED (Neg); PH,URINE 5.5 (4.8-8.0); PROTEIN,URINE NEGATIVE (Neg); UROBILINOGEN,URINE 0.2 E.U/dL (0.2-1.0)
[2020-06-23 19:19] LABS: ALANINE AMINOTRANSFERASE 22 U/L (12-78); ALBUMIN 3.7 G/DL (3.4-5.0); ALBUMIN/GLOBULIN RATIO 1.2 (1.1-1.5); ALKALINE PHOSPHATASE 91 IU/L (46-116); ANION GAP 11 (8-16); ASPARTATE AMINO TRANSFERASE 16 U/L (10-37); BILIRUBIN,TOTAL 0.4 MG/DL (0.1-1.0); BLOOD UREA NITROGEN 33 MG/DL (7-18); BUN/CREATININE RATIO 21.7 (6.6-38.0); CALCIUM 8.8 MG/DL (8.5-10.1); CHLORIDE 110 MMOL/L (99-107); CREATININE 1.52 MG/DL (0.40-0.90); GLUCOSE 160 MG/DL (70-104); POTASSIUM 4.5 MMOL/L (3.5-5.1); SODIUM 145 MMOL/L (135-145); TOTAL CARBON DIOXIDE 24.1 MMOL/L (24-32); TOTAL PROTEIN 6.8 G/DL (6.4-8.2); eGFR 35 ML/MIN
--- NOTE | 2020-06-23 19:20 | NUR ---
[place] [facility] [place] - [phone]
[2020-06-23 19:24] LABS: BACTERIA,URINE 2+ /HPF (Neg); RBC,URINE 0-2 /HPF (0-2); SQUAMOUS EPITHELIAL CELL,UR FEW /LPF (FEW); UA COLLECTION TYPE CLN CATCH MIDSTREAM
[2020-06-23 19:28] LABS: LIPASE 113 U/L (73-393)
[2020-06-23] MEDS ORDERED: albuterol 2.5 MG/3 ML nebule NEB ONE (21:30)
[2020-06-23] MEDS ORDERED: NITR100C6 PO (21:32)
--- NOTE | 2020-06-23 22:01 | NUR ---
PT GETTING SVN NOW. ANTICIPATE DC SHORTLY AFTER.
[2020-06-23 22:24] VITALS: BP 105/71
== END 2020-06-23 22:25 | disposition home or self-care (01) ==
LOC: ER 18:20
DX: N39.0 Urinary tract infection, site not specified (principal); J45.901 Unspecified asthma with (acute) exacerbation; R06.02 Shortness of breath; R11.0 Nausea; R10.84 Generalized abdominal pain; R30.0 Dysuria; G43.909 Migraine, unspecified, not intractable, without status migrainosus; E78.00 Pure hypercholesterolemia, unspecified; I10 Essential (primary) hypertension; J45.909 Unspecified asthma, uncomplicated; K21.9 Gastro-esophageal reflux disease without esophagitis; E11.9 Type 2 diabetes mellitus without complications; G89.29 Other chronic pain; F32.9 Major depressive disorder, single episode, unspecified; Z90.49 Acquired absence of other specified parts of digestive tract; Z98.890 Other specified postprocedural states; Z72.89 Other problems related to lifestyle; Z56.0 Unemployment, unspecified; Z88.0 Allergy status to penicillin; Z91.018 Allergy to other foods; Z79.899 Other long term (current) drug therapy
CPT/HCPCS: 36415; 71045; 80053; 81001; 81025; 83690; 83880; 85025; 87088; 93005; 94640; 94760; 99285

== ENCOUNTER 2021-02-28 11:27 | Inpatient (IN) | payer MEDICAID ==
[~2021-02-28] VITALS: Ht 162.6 cm; Wt 73.2 kg
[~2021-02-28 11:27] MED LIST changes: -MECL-183 PO; +MECL-226 PO; +NITR100C6 PO
[2021-02-28] MEDS ORDERED: normal saline 1000ML IV soln IVB ONE ×2 (11:45→12:40)
[2021-02-28 12:04] LABS: BASOPHILS % (AUTO) 0.5 % (0-1); EOSINOPHILS % (AUTO) 0.3 % (0-6); HEMATOCRIT 37.6 % (35.0-45.0); HEMOGLOBIN 12.1 g/dl (12.0-16.0); LYMPHOCYTES # (AUTO) 0.8 X10'3 (1.1-4.8); LYMPHOCYTES % (AUTO) 9.6 % (21-51); MEAN CORPUSCULAR HEMOGLOBIN 28.3 PG (27.0-31.0); MEAN CORPUSCULAR HGB CONC 32.2 g/dL (33.0-36.5); MEAN CORPUSCULAR VOLUME 87.8 FL (78-98); MEAN PLATELET VOLUME 8.2 FL (7.4-10.4); MONOCYTES # (AUTO) 0.3 X10'3 (0-0.9); MONOCYTES % (AUTO) 3.6 % (2-12); PLATELET COUNT 235 X10'3 (140-440); RED BLOOD COUNT 4.29 X10'6 (4.20-5.60); RED CELL DISTRIBUTION WIDTH 16.1 % (11.5-14.5); WHITE BLOOD COUNT 8.2 X10'3 (4.5-11.0)
[2021-02-28 12:25] LABS: ALANINE AMINOTRANSFERASE 21 U/L (12-78); ALBUMIN 3.8 G/DL (3.4-5.0); ALBUMIN/GLOBULIN RATIO 1.1 (1.1-1.5); ALKALINE PHOSPHATASE 126 IU/L (46-116); ANION GAP 13 (8-16); ASPARTATE AMINO TRANSFERASE 18 U/L (10-37); BILIRUBIN,TOTAL 0.3 MG/DL (0.1-1.0); BLOOD UREA NITROGEN 51 MG/DL (7-18); BUN/CREATININE RATIO 15.2 (6.6-38.0); CHLORIDE 107 MMOL/L (99-107); CREATININE 3.35 MG/DL (0.40-0.90); GLUCOSE 183 MG/DL (70-104); LIPASE 253 U/L (73-393); MAGNESIUM 1.7 MG/DL (1.5-2.4); POTASSIUM 4.4 MMOL/L (3.5-5.1); SODIUM 143 MMOL/L (135-145); TOTAL CARBON DIOXIDE 23.1 MMOL/L (24-32); TOTAL PROTEIN 7.2 G/DL (6.4-8.2); eGFR 14 ML/MIN
--- NOTE | 2021-02-28 15:00 | NUR ---
DISCUSSED PATIENT COMPLAINT OF "FEELING WEIRD" AND NUMBNESS IN DIFFERENT AREAS OF HER FACE: FACE SYMMETRICAL, NO FACIAL DROOP NOTED, TONGUE MIDLINE, PATIENT FOLLOWS COMMANDS, NO PRONATOR DRIFT NOTED, EQUAL STRENGTH WITH SHOULDERS BICEPS, HANDS, QUADS AND PEDALS PA GOOD INFORMED
[2021-02-28 15:49] LABS: D-DIMER 0.61 MG/L FEU (0-0.50); PARTIAL THROMBOPLASTIN TIME 25 SECONDS (22-32)
[2021-02-28 15:51] LABS: ANION GAP 12 (8-16); BLOOD UREA NITROGEN 46 MG/DL (7-18); BUN/CREATININE RATIO 16.5 (6.6-38.0); CALCIUM 7.9 MG/DL (8.5-10.1); CHLORIDE 113 MMOL/L (99-107); CREATINE KINASE 63 U/L (26-192); CREATININE 2.78 MG/DL (0.40-0.90); ETHANOL < 0.010 GM/DL (0.0-0.010); GLUCOSE 132 MG/DL (70-104); SODIUM 144 MMOL/L (135-145); TOTAL CARBON DIOXIDE 19.4 MMOL/L (24-32); eGFR 18 ML/MIN
[2021-02-28] MEDS ORDERED: GLIP5TAB13 PO (17:36)
[2021-02-28] MEDS ORDERED: LEVO50TA8 PO (17:36)
[2021-02-28] MEDS ORDERED: BUDE10.27 PO (17:36)
[2021-02-28] MEDS ORDERED: GABA300C PO (17:36)
[2021-02-28] MEDS ORDERED: BACL20TA2 PO (17:36)
[2021-02-28] MEDS ORDERED: ATOR10TA70 PO (17:36)
[2021-02-28] MEDS ORDERED: BENA10TA74 PO (17:36)
[2021-02-28] MEDS ORDERED: OMEP-50 PO (17:36)
[2021-02-28] MEDS ORDERED: SERT-434 PO (17:36)
[2021-02-28] MEDS ORDERED: TRAZ-251 PO (17:36)
[2021-02-28] MEDS ORDERED: OXYB5TAB16 PO (17:36)
[2021-02-28] MEDS ORDERED: FEXO-236 PO (17:36)
[2021-02-28] MEDS ORDERED: AMIT-189 PO (17:36)
[2021-02-28] MEDS ORDERED: DILT180C87 PO (17:36)
[2021-02-28] MEDS ORDERED: METO50TA16 PO (17:36)
[2021-02-28] MEDS ORDERED: METF-900 PO (17:39)
[2021-02-28] MEDS ORDERED: MESSAGE TO PHARMACY PO ONE (17:40)
[2021-02-28] MEDS ORDERED: dextrose 50%-water 50ml dispensing syringe IV PRN ×2 (17:40)
[2021-02-28] MEDS ORDERED: acetaminophen 325mg tablet PO PRN ×2 (17:40)
[2021-02-28] MEDS ORDERED: insulin Lispro (HumaLOG) vial - multi-dose SQ SCH (17:40)
[2021-02-28] MEDS ORDERED: ondansetron/PF 4mg/2ml inj IV PRN (17:40)
[2021-02-28] MEDS ORDERED: morphine 2 MG/ML inj. syringe IV PRN ×2 (17:40)
[2021-02-28] MEDS ORDERED: HYDROcodone/acetaminophen 10/325mg tab PO PRN (17:40)
[2021-02-28] MEDS ORDERED: glucagon, human recombinant 1mg kit SUBCUT PRN (17:40)
[2021-02-28] MEDS ORDERED: dextrose ORAL solution 15 GM/59 ML bottle PO PRN ×2 (17:40)
[2021-02-28] MEDS ORDERED: mag hydrox/Alum hydrox/simeth 30ml oral suspension PO PRN (17:40)
[2021-02-28] MEDS ORDERED: magnesium hydroxide 30ml (MOM) UD suspension PO PRN (17:40)
[2021-02-28] MEDS ORDERED: LEVO75TA7 PO (17:41)
[2021-02-28 17:46] LABS: ABG BASE EXCESS -9.8 mmol/L (-2.0-2.0); ABG HCO3 16.7 mmol/L (22.0-26.0); ABG OXYGEN SATURATION 91.7 % (94-97); ABG PCO2 (T) 39.1 mmHg (32.0-45.0); ABG PO2 (T) 66.2 mmHg (75.0-100.0); ALLEN'S TEST POSITIVE; FCOHb 0.1 % (0.0-3.9); FMetHb 0.1 % (0.0-1.5); FO2Hb 91.5 % (94-97); TOTAL HEMOGLOBIN 11.9 G/dl (12.0-16.0)
[2021-02-28 18:38] LABS: CLARITY,URINE SLIGHTLY CLOUDY (Clear); GLUCOSE, URINE NEGATIVE (Neg); KETONES,URINE NEGATIVE (Neg); LEUKOCYTE ESTERASE ,URINE MODERATE (Neg); NITRITES, URINE NEGATIVE (Neg); OCCULT BLOOD,URINE TRACE-INTACT (Neg); PH,URINE 5.5 (4.8-8.0); PROTEIN,URINE NEGATIVE (Neg); UROBILINOGEN,URINE 0.2 E.U/dL (0.2-1.0)
[2021-02-28 18:39] LABS: UA COLLECTION TYPE CLN CATCH MIDSTREAM
[2021-02-28 18:40] LABS: URINE HCG NEGATIVE (NEG)
[2021-02-28 18:41] LABS: COLOR,URINE YELLOW (Yellow)
[2021-02-28 18:46] LABS: BACTERIA,URINE 1+ /HPF (Neg); MUCUS STRANDS FEW /LPF (Neg); RBC,URINE 0-2 /HPF (0-2); SQUAMOUS EPITHELIAL CELL,UR MANY /LPF (FEW); TRANSITIONAL EPI CELLS,URINE FEW /HPF
[2021-02-28 18:52] LABS: URINE AMPHETAMINE SCREEN NEGATIVE (Neg); URINE BARBITUATE SCREEN NEGATIVE (Neg); URINE BENZODIAZEPINES SCREEN NEGATIVE (Neg); URINE CANNABINOID SCREEN NEGATIVE (Neg); URINE COCAINE SCREEN NEGATIVE (Neg); URINE METHADONE SCREEN NEGATIVE (Neg); URINE OPIATE SCREEN NEGATIVE (Neg); URINE PHENCYCLIDINE SCREEN NEGATIVE (Neg)
[2021-02-28] MEDS: normal saline 1000ml 1,000 ML IV SCH (19:33)
--- NOTE | 2021-02-28 19:35 | NUR ---
PT SLEEPING, O2 SAT AT 84-86% RA. PLACED NC 2 L. 92%
--- NOTE | 2021-02-28 19:45 | NUR ---
PTS URINE REJECTED FOR CULTURE, AAYUSH DALEY UPDATED AND HE REQUEST A STRAIGHT CATH. STRAIGHT CATH COMPLETED AND JUST SENT TO LAB.
[2021-02-28 19:51] LABS: CLARITY,URINE CLEAR (Clear); COLOR,URINE YELLOW (Yellow); GLUCOSE, URINE NEGATIVE (Neg); KETONES,URINE NEGATIVE (Neg); LEUKOCYTE ESTERASE ,URINE NEGATIVE (Neg); NITRITES, URINE NEGATIVE (Neg); OCCULT BLOOD,URINE NEGATIVE (Neg); PH,URINE 5.5 (4.8-8.0); PROTEIN,URINE NEGATIVE (Neg); UROBILINOGEN,URINE 0.2 E.U/dL (0.2-1.0)
[2021-02-28 20:30] LABS: UA COLLECTION TYPE STRAIGHT CATH
[2021-02-28] MEDS: albuterol 2.5 MG/3 ML nebule NEB SCH (20:33)
[2021-02-28] MEDS: budesonide 0.5mg/2ml UD nebule IH SCH (20:33)
[2021-02-28] MEDS: insulin glargine (Lantus) pen - multi-dose SQ SCH (21:00)
[2021-02-28] MEDS: oxybutynin 5mg tablet PO SCH (21:51)
[2021-02-28] MEDS: heparin, porcine 5000 units/ml vial SQ SCH (21:52)
[2021-02-28] MEDS: baclofen 10mg tablet PO SCH (21:52)
[2021-02-28] MEDS: amitriptyline 50mg tablet PO SCH (21:52)
[2021-02-28] MEDS: traZODone 50mg tablet PO SCH (21:52)
[2021-02-28 22:00] VITALS: BP_SYST 133; BP_SYST 147; BP_DIAS 76; BP_DIAS 84
[2021-03-01] VITALS (9 sets, daily range): BP systolic 101–135; BP diastolic 61–79
[2021-03-01] MEDS: HYDROcodone/acetaminophen 5mg/325mg tablet PO PRN (00:16)
[2021-03-01] MEDS: albuterol 2.5 MG/3 ML nebule NEB SCH ×4 (03:04→20:26)
[2021-03-01] MEDS: normal saline 1000ml 1,000 ML IV SCH ×3 (05:40→23:43)
--- NOTE | 2021-03-01 06:28 | NUR ---
Problems reprioritized. Patient report given, questions answered & plan of care reviewed with MERI PINEDO.
[2021-03-01 06:40] LABS: BASOPHILS % (AUTO) 0.7 % (0-1); EOSINOPHILS # (AUTO) 0.1 X10'3 (0-0.9); EOSINOPHILS % (AUTO) 1.3 % (0-6); HEMATOCRIT 33.7 % (35.0-45.0); HEMOGLOBIN 10.8 g/dl (12.0-16.0); LYMPHOCYTES # (AUTO) 2.2 X10'3 (1.1-4.8); LYMPHOCYTES % (AUTO) 33.8 % (21-51); MEAN CORPUSCULAR HEMOGLOBIN 28.7 PG (27.0-31.0); MEAN CORPUSCULAR VOLUME 89.8 FL (78-98); MEAN PLATELET VOLUME 8.6 FL (7.4-10.4); MONOCYTES # (AUTO) 0.7 X10'3 (0-0.9); MONOCYTES % (AUTO) 10.6 % (2-12); NEUTROPHILS # (AUTO) 3.4 X10'3 (1.8-7.7); NEUTROPHILS % (AUTO) 53.6 % (42-75); PLATELET COUNT 182 X10'3 (140-440); RED BLOOD COUNT 3.75 X10'6 (4.20-5.60); RED CELL DISTRIBUTION WIDTH 16.5 % (11.5-14.5); WHITE BLOOD COUNT 6.4 X10'3 (4.5-11.0)
[2021-03-01 06:59] LABS: ALBUMIN 2.9 G/DL (3.4-5.0); ANION GAP 12 (8-16); BLOOD UREA NITROGEN 42 MG/DL (7-18); BUN/CREATININE RATIO 20.3 (6.6-38.0); CALCIUM 8.7 MG/DL (8.5-10.1); CHLORIDE 115 MMOL/L (99-107); CREATININE 2.07 MG/DL (0.40-0.90); GLUCOSE 128 MG/DL (70-104); POTASSIUM 4.9 MMOL/L (3.5-5.1); SODIUM 146 MMOL/L (135-145); TOTAL CARBON DIOXIDE 19.3 MMOL/L (24-32); eGFR 25 ML/MIN
[2021-03-01] MEDS: budesonide 0.5mg/2ml UD nebule IH SCH ×2 (07:57→20:26)
[2021-03-01] MEDS: sertraline 50mg tablet PO SCH (09:00)
[2021-03-01] MEDS: heparin, porcine 5000 units/ml vial SQ SCH ×2 (09:00→20:14)
[2021-03-01] MEDS: oxybutynin 5mg tablet PO SCH ×2 (09:01→20:15)
[2021-03-01] MEDS: pantoprazole 40mg Tablet.DR PO SCH (09:01)
[2021-03-01] MEDS: levoTHYROXINE 75mcg tablet PO SCH (09:01)
[2021-03-01] MEDS: baclofen 10mg tablet PO SCH ×3 (09:01→20:15)
[2021-03-01] MEDS: atorvastatin 10mg tablet PO SCH (09:01)
[2021-03-01] MEDS: loratadine 10mg tablet PO SCH (09:01)
[2021-03-01 11:30] LABS: BASOPHILS % (AUTO) 0.6 % (0-1); EOSINOPHILS # (AUTO) 0.1 X10'3 (0-0.9); EOSINOPHILS % (AUTO) 1.1 % (0-6); HEMATOCRIT 33.1 % (35.0-45.0); HEMOGLOBIN 10.9 g/dl (12.0-16.0); LYMPHOCYTES # (AUTO) 1.6 X10'3 (1.1-4.8); MEAN CORPUSCULAR HEMOGLOBIN 29.1 PG (27.0-31.0); MEAN CORPUSCULAR HGB CONC 32.8 g/dL (33.0-36.5); MEAN CORPUSCULAR VOLUME 88.5 FL (78-98); MEAN PLATELET VOLUME 8.6 FL (7.4-10.4); MONOCYTES # (AUTO) 0.4 X10'3 (0-0.9); MONOCYTES % (AUTO) 7.5 % (2-12); NEUTROPHILS # (AUTO) 2.9 X10'3 (1.8-7.7); NEUTROPHILS % (AUTO) 58.8 % (42-75); PLATELET COUNT 191 X10'3 (140-440); RED BLOOD COUNT 3.75 X10'6 (4.20-5.60); RED CELL DISTRIBUTION WIDTH 16.2 % (11.5-14.5); WHITE BLOOD COUNT 4.9 X10'3 (4.5-11.0)
--- NOTE | 2021-03-01 11:32 | NUR ---
DM Consult: Pt A1C 7.0 admit w/ SANTI, dehydration, and pending c.diff result per EMR. Written DM Ed w/ RD contact information placed in pt chart. Will remain available for questions/concerns this admit. Addendum: 03/01/21 at [address] Amended: Links added.
[2021-03-01 11:42] LABS: ALANINE AMINOTRANSFERASE 16 U/L (12-78); ALKALINE PHOSPHATASE 102 IU/L (46-116); ANION GAP 12 (8-16); ASPARTATE AMINO TRANSFERASE 12 U/L (10-37); BILIRUBIN,TOTAL 0.2 MG/DL (0.1-1.0); BLOOD UREA NITROGEN 39 MG/DL (7-18); BUN/CREATININE RATIO 21.2 (6.6-38.0); CALCIUM 8.5 MG/DL (8.5-10.1); CHLORIDE 113 MMOL/L (99-107); CREATININE 1.84 MG/DL (0.40-0.90); GLUCOSE 193 MG/DL (70-104); POTASSIUM 3.8 MMOL/L (3.5-5.1); SODIUM 146 MMOL/L (135-145); TOTAL CARBON DIOXIDE 20.6 MMOL/L (24-32); TOTAL PROTEIN 5.9 G/DL (6.4-8.2); eGFR 28 ML/MIN
--- NOTE | 2021-03-01 18:09 | NUR ---
Problems reprioritized. Patient report given, questions answered & plan of care reviewed with Cynthia JEREZ.
--- NOTE | 2021-03-01 18:30 | NUR ---
Patient in room ORTHO 4017. I have received report from MERI PINEDO and had the opportunity to ask questions and assume patient care.
[2021-03-01] MEDS: traZODone 50mg tablet PO SCH (20:15)
[2021-03-01] MEDS: amitriptyline 50mg tablet PO SCH (20:15)
[2021-03-01] MEDS: gabapentin 300mg capsule PO SCH (20:16)
[2021-03-01] MEDS: insulin glargine (Lantus) pen - multi-dose SQ SCH (21:00)
[2021-03-02] MEDS: albuterol 2.5 MG/3 ML nebule NEB SCH ×2 (02:21→08:36)
[2021-03-02 06:00] VITALS: BP 142/91
[2021-03-02 06:20] LABS: ALBUMIN 2.9 G/DL (3.4-5.0); ANION GAP 10 (8-16); BLOOD UREA NITROGEN 33 MG/DL (7-18); BUN/CREATININE RATIO 25.2 (6.6-38.0); CALCIUM 8.8 MG/DL (8.5-10.1); CHLORIDE 113 MMOL/L (99-107); CREATININE 1.31 MG/DL (0.40-0.90); GLUCOSE 128 MG/DL (70-104); POTASSIUM 4.5 MMOL/L (3.5-5.1); SODIUM 144 MMOL/L (135-145); TOTAL CARBON DIOXIDE 21.5 MMOL/L (24-32); eGFR 42 ML/MIN
[2021-03-02 06:30] LABS: BASOPHILS % (AUTO) 0.7 % (0-1); EOSINOPHILS # (AUTO) 0.1 X10'3 (0-0.9); EOSINOPHILS % (AUTO) 2.3 % (0-6); HEMATOCRIT 30.4 % (35.0-45.0); HEMOGLOBIN 9.9 g/dl (12.0-16.0); LYMPHOCYTES # (AUTO) 1.9 X10'3 (1.1-4.8); LYMPHOCYTES % (AUTO) 37.9 % (21-51); MEAN CORPUSCULAR HEMOGLOBIN 28.8 PG (27.0-31.0); MEAN CORPUSCULAR HGB CONC 32.5 g/dL (33.0-36.5); MEAN CORPUSCULAR VOLUME 88.7 FL (78-98); MEAN PLATELET VOLUME 8.3 FL (7.4-10.4); MONOCYTES # (AUTO) 0.4 X10'3 (0-0.9); MONOCYTES % (AUTO) 8.6 % (2-12); NEUTROPHILS # (AUTO) 2.5 X10'3 (1.8-7.7); NEUTROPHILS % (AUTO) 50.5 % (42-75); PLATELET COUNT 194 X10'3 (140-440); RED BLOOD COUNT 3.43 X10'6 (4.20-5.60); RED CELL DISTRIBUTION WIDTH 16.8 % (11.5-14.5); WHITE BLOOD COUNT 4.9 X10'3 (4.5-11.0)
--- NOTE | 2021-03-02 06:35 | NUR ---
Problems reprioritized. Patient report given, questions answered & plan of care reviewed with MERI GOETZ.
--- NOTE | 2021-03-02 06:37 | NUR ---
Patient in room ORTHO 4017. I have received report from Calin marroquin and had the opportunity to ask questions and assume patient care.
[2021-03-02] MEDS: baclofen 10mg tablet PO SCH (08:13)
[2021-03-02] MEDS: heparin, porcine 5000 units/ml vial SQ SCH (08:13)
[2021-03-02] MEDS: levoTHYROXINE 75mcg tablet PO SCH (08:13)
[2021-03-02] MEDS: gabapentin 300mg capsule PO SCH (08:13)
[2021-03-02] MEDS: sertraline 50mg tablet PO SCH (08:14)
[2021-03-02] MEDS: HYDROcodone/acetaminophen 5mg/325mg tablet PO PRN (08:14)
[2021-03-02] MEDS: atorvastatin 10mg tablet PO SCH (08:15)
[2021-03-02] MEDS: pantoprazole 40mg Tablet.DR PO SCH (08:15)
[2021-03-02] MEDS: loratadine 10mg tablet PO SCH (08:15)
[2021-03-02] MEDS: oxybutynin 5mg tablet PO SCH (08:15)
[2021-03-02] MEDS: budesonide 0.5mg/2ml UD nebule IH SCH (08:36)
[2021-03-02] MEDS: normal saline 1000ml 1,000 ML IV SCH (08:52)
[2021-03-02 09:24] VITALS: BP_SYST 154; BP_SYST 157; BP_DIAS 80; BP_DIAS 95
--- NOTE | 2021-03-02 10:44 | NUR ---
Pt discharged at 10:35. Tele/iv removed without complications. Pt belongings sent wit pt. All questions reviewed/answered. Pt discharged in private vehicle with family in stable condition
--- NOTE | 2021-03-03 15:31 | NUR ---
CASE MANAGEMENT DISCHARGE FOLLOW UP: Spoke with pt via telephone. Reports that she is doing much better, states having some weakness still; denies N/V/D, faintness/weakness, CP, SOB. Verbalizes understanding of s/sx requiring further evaluation/emergent assistance. Verbalizes understanding of medications. Verbalizes compliance with MD discharge instructions. Verbalizes understanding of the importance in making/keeping follow-up appointments, will call next week as office is closed today. Pt states hospital stay was great. States no further questions/concerns at this time.
== END 2021-03-02 10:40 | disposition home or self-care (01) | DRG 422 ==
LOC: ER 11:27 → ED HOLD 17:40 → ORTHO 4S 21:12
PROVIDERS: ADMIT Internal Medicine; ATTEND Internal Medicine
DX: E86.0 Dehydration (principal); E11.22 Type 2 diabetes mellitus with diabetic chronic kidney disease; E11.40 Type 2 diabetes mellitus with diabetic neuropathy, unspecified; N17.9 Acute kidney failure, unspecified; N18.30 Chronic kidney disease, stage 3 unspecified; E03.9 Hypothyroidism, unspecified; E78.00 Pure hypercholesterolemia, unspecified; E78.5 Hyperlipidemia, unspecified; F32.9 Major depressive disorder, single episode, unspecified; I12.9 Hypertensive chronic kidney disease with stage 1 through stage 4 chronic kidney disease, or unspecified chronic kidney disease; J45.909 Unspecified asthma, uncomplicated; Z79.84 Long term (current) use of oral hypoglycemic drugs; Z79.899 Other long term (current) drug therapy
CPT/HCPCS: 36415; 36600; 70450; 71045; 80048; 80053; 80305; 80320; 81001; 81003; 81025; 82140; 82550; 82803; 82948; 83036; 83690; 83735; 83880; 84484; 85018; 85025; 85379; 85610; 85730; 87081; 93005; 94640; 94760; 96374; 97161; 97530; 99285; G0378; J1644; J1815; J2405; J7030; J7626

== ENCOUNTER 2021-04-29 09:13 | Emergency (ER) | payer MEDICAID ==
[~2021-04-29] VITALS: Ht 162.6 cm; Wt 70.9 kg
[~2021-04-29 09:13] MED LIST changes: +AMIT-189 PO; +ATOR10TA70 PO; -ATOR10TA87 PO; +BACL20TA2 PO; +BENA10TA74 PO; -BENA5TAB6 PO; +BUDE10.27 PO; -CEPH-572 PO; -CITA40TA17 PO; -DIAZ2TAB PO; -DIAZ5TAB PO; +DILT180C87 PO; -DILT180C89 PO; -FEXO-124 PO; +FEXO-236 PO; -GABA-532 PO; +GABA300C PO; +GLIP5TAB13 PO; -HYDR-3964 PO; -LACT1CAP60 PO; -MAGN400C PO; -MECL-159 PO; -MECL-226 PO; +METF-900 PO; -METF500T PO; +METO50TA16 PO; -MIRT15TA8 PO; -NITR100C6 PO; +OMEP-50 PO; -ONDA4TAB6 PO; +OXYB5TAB16 PO; +SERT-434 PO; +TRAZ-251 PO
[2021-04-29 10:55] VITALS: BP 143/67
== END 2021-04-29 10:56 | disposition home or self-care (01) ==
LOC: ER 09:14
DX: S63.690A Other sprain of right index finger, initial encounter (principal); E78.00 Pure hypercholesterolemia, unspecified; G43.909 Migraine, unspecified, not intractable, without status migrainosus; K21.9 Gastro-esophageal reflux disease without esophagitis; E11.9 Type 2 diabetes mellitus without complications; I10 Essential (primary) hypertension; Z56.0 Unemployment, unspecified; Z88.0 Allergy status to penicillin; Z91.018 Allergy to other foods; X50.0XXA Overexertion from strenuous movement or load, initial encounter; Y93.89 Activity, other specified; Y92.89 Other specified places as the place of occurrence of the external cause; Y99.8 Other external cause status
CPT/HCPCS: 29125; 73140; 99283

== ENCOUNTER 2021-05-27 17:58 | Emergency (ER) | payer MEDICAID ==
[~2021-05-27] VITALS: Ht 162.6 cm; Wt 70.0 kg
[2021-05-28 00:01] VITALS: BP 161/104
--- NOTE | 2021-05-28 00:06 | NUR ---
No distress on initial exam. Lung sounds clear in all wheeler with good air mvmt. Denies nausea. States tachycardia is baseline
[2021-05-28] MEDS ORDERED: proCHLORperazine 10 MG/2 ml inj IV ONE (00:15)
[2021-05-28] MEDS ORDERED: normal saline 1000ML IV soln IVB ONE (00:15)
[2021-05-28 01:21] LABS: BASOPHILS # (AUTO) 0.1 X10'3 (0-0.2); EOSINOPHILS # (AUTO) 0.1 X10'3 (0-0.9); EOSINOPHILS % (AUTO) 0.6 % (0-6); HEMATOCRIT 38.8 % (35.0-45.0); HEMOGLOBIN 13.1 g/dl (12.0-16.0); LYMPHOCYTES # (AUTO) 1.8 X10'3 (1.1-4.8); LYMPHOCYTES % (AUTO) 18.8 % (21-51); MEAN CORPUSCULAR HEMOGLOBIN 29.2 PG (27.0-31.0); MEAN CORPUSCULAR HGB CONC 33.7 g/dL (33.0-36.5); MEAN CORPUSCULAR VOLUME 86.6 FL (78-98); MEAN PLATELET VOLUME 8.2 FL (7.4-10.4); MONOCYTES # (AUTO) 0.7 X10'3 (0-0.9); MONOCYTES % (AUTO) 6.9 % (2-12); NEUTROPHILS % (AUTO) 72.7 % (42-75); PLATELET COUNT 283 X10'3 (140-440); RED BLOOD COUNT 4.47 X10'6 (4.20-5.60); RED CELL DISTRIBUTION WIDTH 18.4 % (11.5-14.5); WHITE BLOOD COUNT 9.6 X10'3 (4.5-11.0)
[2021-05-28 01:23] LABS: ALANINE AMINOTRANSFERASE 18 U/L (12-78); ALBUMIN 4.1 G/DL (3.4-5.0); ALBUMIN/GLOBULIN RATIO 1.2 (1.1-1.5); ALKALINE PHOSPHATASE 102 IU/L (46-116); ANION GAP 6 (8-16); ASPARTATE AMINO TRANSFERASE 21 U/L (10-37); BILIRUBIN,TOTAL 0.4 MG/DL (0.1-1.0); BLOOD UREA NITROGEN 18 MG/DL (7-18); BUN/CREATININE RATIO 16.2 (6.6-38.0); CALCIUM 9.6 MG/DL (8.5-10.1); CHLORIDE 108 MMOL/L (99-107); CREATININE 1.11 MG/DL (0.40-0.90); GLUCOSE 144 MG/DL (70-104); LIPASE 114 U/L (73-393); POTASSIUM 3.8 MMOL/L (3.5-5.1); SODIUM 135 MMOL/L (135-145); TOTAL CARBON DIOXIDE 21.2 MMOL/L (24-32); TOTAL PROTEIN 7.5 G/DL (6.4-8.2); eGFR 50 ML/MIN
[2021-05-28 01:24] LABS: COLOR,URINE YELLOW (Yellow); GLUCOSE, URINE NEGATIVE (Neg); KETONES,URINE TRACE mg/dl (Neg); LEUKOCYTE ESTERASE ,URINE SMALL (Neg); NITRITES, URINE NEGATIVE (Neg); OCCULT BLOOD,URINE TRACE-INTACT (Neg); PH,URINE 5.5 (4.8-8.0); PROTEIN,URINE 30 mg/dl (Neg); UROBILINOGEN,URINE 0.2 E.U/dL (0.2-1.0)
[2021-05-28 01:30] LABS: UA COLLECTION TYPE NON-SPECIFIED
[2021-05-28 01:31] LABS: BACTERIA,URINE FEW /HPF (Neg); CLARITY,URINE SLIGHTLY CLOUDY (Clear); RBC,URINE 0-2 /HPF (0-2); SQUAMOUS EPITHELIAL CELL,UR FEW /LPF (FEW); WBC CLUMPS,URINE FEW /HPF (NEGATIVE); WBC,URINE 20-30 /HPF (0-4)
[2021-05-28] MEDS ORDERED: cephalexin 500mg capsule PO ONE (01:40)
[2021-05-28] MEDS ORDERED: CEPH-585 PO (01:43)
== END 2021-05-28 01:53 | disposition home or self-care (01) ==
LOC: ER 17:59
DX: R11.2 Nausea with vomiting, unspecified (principal); N39.0 Urinary tract infection, site not specified; G43.909 Migraine, unspecified, not intractable, without status migrainosus; E78.00 Pure hypercholesterolemia, unspecified; J45.909 Unspecified asthma, uncomplicated; K21.9 Gastro-esophageal reflux disease without esophagitis; I10 Essential (primary) hypertension; E11.9 Type 2 diabetes mellitus without complications; Z56.0 Unemployment, unspecified
CPT/HCPCS: 36415; 71045; 80053; 81001; 83690; 85025; 87088; 96361; 96374; 99284; J0780; J7030

== ENCOUNTER 2021-10-01 13:27 | Emergency (ER) | payer MEDICAID ==
[~2021-10-01] VITALS: Ht 165.1 cm; Wt 75.0 kg
[~2021-10-01 13:27] MED LIST changes: +CEPH-585 PO
[2021-10-01 14:01] LABS: BASOPHILS # (AUTO) 0.1 X10'3 (0-0.2); BASOPHILS % (AUTO) 0.7 % (0-1); EOSINOPHILS # (AUTO) 0.1 X10'3 (0-0.9); EOSINOPHILS % (AUTO) 0.6 % (0-6); HEMATOCRIT 36.2 % (35.0-45.0); HEMOGLOBIN 11.8 g/dl (12.0-16.0); LYMPHOCYTES # (AUTO) 0.9 X10'3 (1.1-4.8); LYMPHOCYTES % (AUTO) 11.3 % (21-51); MEAN CORPUSCULAR HGB CONC 32.6 g/dL (33.0-36.5); MEAN CORPUSCULAR VOLUME 82.7 FL (78-98); MEAN PLATELET VOLUME 7.5 FL (7.4-10.4); MONOCYTES # (AUTO) 0.4 X10'3 (0-0.9); MONOCYTES % (AUTO) 5.2 % (2-12); NEUTROPHILS # (AUTO) 6.7 X10'3 (1.8-7.7); NEUTROPHILS % (AUTO) 82.2 % (42-75); PLATELET COUNT 269 X10'3 (140-440); RED BLOOD COUNT 4.37 X10'6 (4.20-5.60); RED CELL DISTRIBUTION WIDTH 16.2 % (11.5-14.5); WHITE BLOOD COUNT 8.2 X10'3 (4.5-11.0)
[2021-10-01 14:17] LABS: ALANINE AMINOTRANSFERASE 19 U/L (12-78); ALBUMIN 3.8 G/DL (3.4-5.0); ALBUMIN/GLOBULIN RATIO 1.1 (1.1-1.5); ALKALINE PHOSPHATASE 130 IU/L (46-116); ANION GAP 9 (8-16); ASPARTATE AMINO TRANSFERASE 13 U/L (10-37); BILIRUBIN,TOTAL 0.3 MG/DL (0.1-1.0); BLOOD UREA NITROGEN 28 MG/DL (7-18); BUN/CREATININE RATIO 15.5 (6.6-38.0); CALCIUM 9.1 MG/DL (8.5-10.1); CHLORIDE 106 MMOL/L (99-107); CREATININE 1.81 MG/DL (0.40-0.90); GLUCOSE 165 MG/DL (70-104); POTASSIUM 4.3 MMOL/L (3.5-5.1); SODIUM 140 MMOL/L (135-145); TOTAL CARBON DIOXIDE 25.3 MMOL/L (24-32); TOTAL PROTEIN 7.2 G/DL (6.4-8.2); eGFR 29 ML/MIN
[2021-10-01] MEDS ORDERED: normal saline 1000ml 1,000 ML IV ONE ×2 (14:35→16:55)
[2021-10-01 14:42] LABS: ETHANOL < 0.010 GM/DL (0.0-0.010)
--- NOTE | 2021-10-01 14:47 | NUR ---
SISTER DIANA BOYCE [phone]
[2021-10-01 16:35] LABS: CLARITY,URINE SLIGHTLY CLOUDY (Clear); COLOR,URINE YELLOW (Yellow); GLUCOSE, URINE NEGATIVE (Neg); KETONES,URINE NEGATIVE (Neg); LEUKOCYTE ESTERASE ,URINE TRACE (Neg); NITRITES, URINE NEGATIVE (Neg); OCCULT BLOOD,URINE NEGATIVE (Neg); PH,URINE 5.5 (4.8-8.0); PROTEIN,URINE NEGATIVE (Neg); UA COLLECTION TYPE CLN CATCH MIDSTREAM; UROBILINOGEN,URINE 0.2 E.U/dL (0.2-1.0)
[2021-10-01 16:41] LABS: URINE AMPHETAMINE SCREEN NEGATIVE (Neg); URINE BARBITUATE SCREEN NEGATIVE (Neg); URINE BENZODIAZEPINES SCREEN NEGATIVE (Neg); URINE CANNABINOID SCREEN NEGATIVE (Neg); URINE COCAINE SCREEN NEGATIVE (Neg); URINE METHADONE SCREEN NEGATIVE (Neg); URINE OPIATE SCREEN NEGATIVE (Neg); URINE PHENCYCLIDINE SCREEN NEGATIVE (Neg)
[2021-10-01 16:42] LABS: MUCUS STRANDS FEW /LPF (Neg); SQUAMOUS EPITHELIAL CELL,UR FEW /LPF (FEW)
[2021-10-01 16:43] LABS: BACTERIA,URINE 1+ /HPF (Neg); RBC,URINE 0-2 /HPF (0-2); TRANSITIONAL EPI CELLS,URINE FEW /HPF; WBC,URINE 0-4 /HPF (0-4)
[2021-10-01 20:22] VITALS: BP 159/89
== END 2021-10-01 20:24 | disposition home or self-care (01) ==
LOC: ER 13:27
DX: N30.00 Acute cystitis without hematuria (principal); E86.0 Dehydration; E78.00 Pure hypercholesterolemia, unspecified; I10 Essential (primary) hypertension; J45.909 Unspecified asthma, uncomplicated; E11.9 Type 2 diabetes mellitus without complications; Z56.0 Unemployment, unspecified; Z88.0 Allergy status to penicillin; Z91.018 Allergy to other foods; Z79.899 Other long term (current) drug therapy; Z20.822 Contact with and (suspected) exposure to COVID-19
CPT/HCPCS: 36415; 70450; 71045; 80053; 80305; 80320; 81001; 83880; 84484; 85025; 87088; 87635; 93005; 96360; 96361; 99285; C9803; J7030

== ENCOUNTER 2021-12-25 16:37 | Emergency (ER) | payer MEDICAID ==
[~2021-12-25] VITALS: Ht 162.6 cm; Wt 75.5 kg
[~2021-12-25 16:37] MED LIST changes: -OMEP-50 PO; +OMEP20CA16 PO
[2021-12-25 16:39] VITALS: BP 140/86
== END 2021-12-25 17:46 | disposition home or self-care (01) ==
LOC: ER 16:38
DX: M25.561 Pain in right knee (principal); R22.41 Localized swelling, mass and lump, right lower limb; G43.909 Migraine, unspecified, not intractable, without status migrainosus; E78.00 Pure hypercholesterolemia, unspecified; I10 Essential (primary) hypertension; J45.909 Unspecified asthma, uncomplicated; K21.9 Gastro-esophageal reflux disease without esophagitis; E11.9 Type 2 diabetes mellitus without complications; G89.29 Other chronic pain; Z90.49 Acquired absence of other specified parts of digestive tract; Z98.82 Breast implant status; Z56.0 Unemployment, unspecified; Z72.89 Other problems related to lifestyle; Z88.0 Allergy status to penicillin; Z91.018 Allergy to other foods; Z79.2 Long term (current) use of antibiotics; Z79.899 Other long term (current) drug therapy
CPT/HCPCS: 73564; 99283

== ENCOUNTER 2022-02-17 11:49 | Emergency (ER) | payer BC, MEDICAID ==
[~2022-02-17] VITALS: Ht 162.6 cm; Wt 78.0 kg
[2022-02-17 12:33] VITALS: BP 132/92
--- NOTE | 2022-02-17 13:15 | NUR ---
AAYUSH Klein at bedside.
== END 2022-02-17 13:45 | disposition home or self-care (01) ==
LOC: ER 11:50
DX: S00.33XA Contusion of nose, initial encounter (principal); J34.89 Other specified disorders of nose and nasal sinuses; G43.909 Migraine, unspecified, not intractable, without status migrainosus; E78.00 Pure hypercholesterolemia, unspecified; I10 Essential (primary) hypertension; J45.909 Unspecified asthma, uncomplicated; K21.9 Gastro-esophageal reflux disease without esophagitis; E11.9 Type 2 diabetes mellitus without complications; G89.29 Other chronic pain; F32.A Depression, unspecified; Z90.49 Acquired absence of other specified parts of digestive tract; Z98.890 Other specified postprocedural states; Z72.89 Other problems related to lifestyle; Z56.0 Unemployment, unspecified; Z88.0 Allergy status to penicillin; Z88.8 Allergy status to other drugs, medicaments and biological substances; Z79.899 Other long term (current) drug therapy; W19.XXXA Unspecified fall, initial encounter; Y93.01 Activity, walking, marching and hiking; Y92.89 Other specified places as the place of occurrence of the external cause; Y99.8 Other external cause status
CPT/HCPCS: 99284

== ENCOUNTER 2022-03-25 10:45 | Emergency (ER) | payer BC, MEDICAID ==
[~2022-03-25] VITALS: Ht 162.6 cm; Wt 72.7 kg
[2022-03-25 10:49] VITALS: BP 117/69
[2022-03-25] MEDS ORDERED: ibuprofen tablet 400 MG TABLET PO ONE (12:05)
[2022-03-25] MEDS ORDERED: acetaminophen 325mg tablet PO ONE (12:05)
== END 2022-03-25 13:09 | disposition home or self-care (01) ==
LOC: ER 10:46
DX: M65.311 Trigger thumb, right thumb (principal); G43.909 Migraine, unspecified, not intractable, without status migrainosus; E78.00 Pure hypercholesterolemia, unspecified; I10 Essential (primary) hypertension; J45.909 Unspecified asthma, uncomplicated; K21.9 Gastro-esophageal reflux disease without esophagitis; E11.9 Type 2 diabetes mellitus without complications; G89.29 Other chronic pain; F32.A Depression, unspecified; Z90.49 Acquired absence of other specified parts of digestive tract; Z98.890 Other specified postprocedural states; Z72.89 Other problems related to lifestyle; Z56.0 Unemployment, unspecified; Z88.0 Allergy status to penicillin; Z88.8 Allergy status to other drugs, medicaments and biological substances; Z79.2 Long term (current) use of antibiotics; Z79.899 Other long term (current) drug therapy
CPT/HCPCS: 29130; 73140; 99284

== ENCOUNTER 2022-06-22 17:46 | Emergency (ER) | payer BC, MEDICAID ==
[~2022-06-22] VITALS: Ht 157.5 cm; Wt 75.0 kg
[~2022-06-22 17:46] MED LIST changes: -CEPH-585 PO
[2022-06-22] MEDS ORDERED: ondansetron/PF 4mg/2ml inj IV ONE (18:55)
[2022-06-22] MEDS ORDERED: diazepam inj 5 MG/ML inj. IV ONE (18:55)
[2022-06-22] MEDS ORDERED: normal saline 1000ml 1,000 ML IV ONE (18:55)
[2022-06-22] MEDS ORDERED: SUMAtriptan 25 MG tablet PO ONE (18:55)
[2022-06-22] MEDS ORDERED: ONDA4TAB12 PO (20:27)
[2022-06-22] MEDS ORDERED: IBUP-1986 PO (20:27)
== END 2022-06-22 20:53 | disposition home or self-care (01) ==
LOC: ER 17:46
DX: G43.909 Migraine, unspecified, not intractable, without status migrainosus (principal); E78.00 Pure hypercholesterolemia, unspecified; I10 Essential (primary) hypertension; J45.909 Unspecified asthma, uncomplicated; K21.9 Gastro-esophageal reflux disease without esophagitis; E11.9 Type 2 diabetes mellitus without complications; G89.29 Other chronic pain; M54.50 Low back pain, unspecified; Z88.0 Allergy status to penicillin; Z91.018 Allergy to other foods; Z90.49 Acquired absence of other specified parts of digestive tract; Z56.0 Unemployment, unspecified
CPT/HCPCS: 96361; 96374; 96375; 99284; J2405; J3360; J7030

== ENCOUNTER 2022-12-29 10:29 | Emergency (ER) | payer OTHER, MEDICAID ==
[~2022-12-29] VITALS: Ht 162.6 cm; Wt 74.1 kg
[~2022-12-29 10:29] MED LIST changes: -AMIT-189 PO; +AMIT50TA15 PO; +IBUP-1986 PO; +ONDA4TAB12 PO
[2022-12-29 10:32] VITALS: BP 142/88
[2022-12-29] MEDS ORDERED: HYDR-3972 PO (12:10)
[2022-12-29] MEDS ORDERED: HYDROcodone/acetaminophen 10/325mg tab PO ONE (12:40)
== END 2022-12-29 12:52 | disposition home or self-care (01) ==
LOC: ER 10:29
DX: M25.512 Pain in left shoulder (principal); G43.909 Migraine, unspecified, not intractable, without status migrainosus; E78.00 Pure hypercholesterolemia, unspecified; I10 Essential (primary) hypertension; J45.909 Unspecified asthma, uncomplicated; K21.9 Gastro-esophageal reflux disease without esophagitis; E11.9 Type 2 diabetes mellitus without complications; G89.29 Other chronic pain; F32.9 Major depressive disorder, single episode, unspecified; Z90.49 Acquired absence of other specified parts of digestive tract; Z98.890 Other specified postprocedural states; Z72.89 Other problems related to lifestyle; Z56.0 Unemployment, unspecified; Z88.0 Allergy status to penicillin; Z91.018 Allergy to other foods; Z79.84 Long term (current) use of oral hypoglycemic drugs; Z79.899 Other long term (current) drug therapy
CPT/HCPCS: 73030; 99283

== ENCOUNTER 2023-01-08 09:42 | Emergency (ER) | payer OTHER, MEDICAID ==
[~2023-01-08] VITALS: Ht 162.6 cm; Wt 71.4 kg
[2023-01-08 09:49] VITALS: BP 132/95
== END 2023-01-08 11:29 | disposition home or self-care (01) ==
LOC: ER 09:42
DX: M25.552 Pain in left hip (principal); G43.909 Migraine, unspecified, not intractable, without status migrainosus; E78.00 Pure hypercholesterolemia, unspecified; I10 Essential (primary) hypertension; J45.909 Unspecified asthma, uncomplicated; K21.9 Gastro-esophageal reflux disease without esophagitis; E11.9 Type 2 diabetes mellitus without complications; G89.29 Other chronic pain; M54.50 Low back pain, unspecified; Z88.0 Allergy status to penicillin; Z91.018 Allergy to other foods; Z90.49 Acquired absence of other specified parts of digestive tract; Z56.0 Unemployment, unspecified
CPT/HCPCS: 73502; 99283

== ENCOUNTER 2023-04-13 11:13 | Emergency (ER) | payer OTHER, MEDICAID ==
[~2023-04-13] VITALS: Ht 162.6 cm; Wt 66.8 kg
[~2023-04-13 11:13] MED LIST changes: +DILT180C76 PO; -DILT180C87 PO
[2023-04-13 12:05] VITALS: BP 110/78
[2023-04-13] MEDS ORDERED: LORazepam 2 mg/ml vial IV ONE (12:35)
[2023-04-13] MEDS ORDERED: normal saline 1000ML IV soln IVB ONE (12:35)
[2023-04-13] MEDS ORDERED: meclizine 12.5mg tablet PO ONE (12:40)
[2023-04-13] MEDS ORDERED: MECL-159 PO (13:21)
== END 2023-04-13 14:08 | disposition home or self-care (01) ==
LOC: ER 11:14
DX: R42 Dizziness and giddiness (principal); G43.909 Migraine, unspecified, not intractable, without status migrainosus; E78.00 Pure hypercholesterolemia, unspecified; J45.909 Unspecified asthma, uncomplicated; K21.9 Gastro-esophageal reflux disease without esophagitis; G89.29 Other chronic pain; F32.A Depression, unspecified; Z88.0 Allergy status to penicillin; Z88.8 Allergy status to other drugs, medicaments and biological substances; Z79.899 Other long term (current) drug therapy; Z79.1 Long term (current) use of non-steroidal anti-inflammatories (NSAID); Z79.2 Long term (current) use of antibiotics
CPT/HCPCS: 96361; 96374; 99283; J2060; J7030; J8597; 96375

== ENCOUNTER 2023-09-13 17:00 | Emergency (ER) | payer OTHER, MEDICAID ==
[~2023-09-13] VITALS: Ht 162.6 cm; Wt 65.2 kg
[~2023-09-13 17:00] MED LIST changes: +MECL-302 PO
[2023-09-13] MEDS ORDERED: LORazepam 1 MG tablet PO ONE (20:15)
[2023-09-13] MEDS ORDERED: ibuprofen tablet 400 MG TABLET PO ONE (20:15)
[2023-09-13] MEDS ORDERED: ibuprofen 200mg tablet PO ONE (20:25)
[2023-09-13 21:30] LABS: BASOPHILS % (AUTO) 0.5 % (0-1); EOSINOPHILS # (AUTO) 0.1 X10'3 (0-0.9); EOSINOPHILS % (AUTO) 0.8 % (0-6); HEMATOCRIT 35.6 % (35.0-45.0); HEMOGLOBIN 11.8 g/dl (12.0-16.0); LYMPHOCYTES # (AUTO) 2.1 X10'3 (1.1-4.8); LYMPHOCYTES % (AUTO) 31.3 % (21-51); MEAN CORPUSCULAR HEMOGLOBIN 32.7 PG (27.0-31.0); MEAN CORPUSCULAR HGB CONC 33.2 g/dL (33.0-36.5); MEAN CORPUSCULAR VOLUME 98.6 FL (78-98); MEAN PLATELET VOLUME 8.1 FL (7.4-10.4); MONOCYTES # (AUTO) 0.7 X10'3 (0-0.9); NEUTROPHILS # (AUTO) 3.9 X10'3 (1.8-7.7); NEUTROPHILS % (AUTO) 57.4 % (42-75); PLATELET COUNT 212 X10'3 (140-440); RED BLOOD COUNT 3.61 X10'6 (4.20-5.60); WHITE BLOOD COUNT 6.7 X10'3 (4.5-11.0)
[2023-09-13] MEDS ORDERED: IBUP-1984 PO (21:59)
[2023-09-13] MEDS ORDERED: LORA-269 PO (21:59)
[2023-09-13 22:11] VITALS: BP 138/95; PULSE 102; RESP 16; TEMP 98; O2SAT 94
== END 2023-09-13 22:31 | disposition home or self-care (01) ==
LOC: ER 17:00
DX: M43.6 Torticollis (principal); G43.909 Migraine, unspecified, not intractable, without status migrainosus; E78.00 Pure hypercholesterolemia, unspecified; I10 Essential (primary) hypertension; J45.909 Unspecified asthma, uncomplicated; K21.9 Gastro-esophageal reflux disease without esophagitis; E11.9 Type 2 diabetes mellitus without complications; Z88.0 Allergy status to penicillin; Z91.018 Allergy to other foods; Z79.899 Other long term (current) drug therapy; Z79.2 Long term (current) use of antibiotics; Z90.49 Acquired absence of other specified parts of digestive tract
CPT/HCPCS: 36415; 72125; 85025; 99284

== ENCOUNTER 2023-11-12 13:09 | Emergency (ER) | payer BC, MEDICAID ==
[~2023-11-12] VITALS: Ht 165.1 cm; Wt 62.7 kg
[~2023-11-12 13:09] MED LIST changes: -GLIP5TAB13 PO; +GLIP5TAB23 PO; +LORA-269 PO; -OXYB5TAB16 PO; +OXYB5TAB17 PO
[2023-11-12] MEDS ORDERED: ketorolac tromethamine 15mg/ml inj. IM ONE (14:25)
[2023-11-12] MEDS ORDERED: diphenhydrAMINE 50 mg/ml inj IM ONE (14:25)
[2023-11-12] MEDS ORDERED: metoclopramide 5 mg/ml inj IM ONE (14:25)
[2023-11-12 15:51] VITALS: BP 120/74; PULSE 89; RESP 18; TEMP 98.2; O2SAT 98
== END 2023-11-12 15:53 | disposition home or self-care (01) ==
LOC: ER 13:10
DX: R51.9 Headache, unspecified (principal); E78.00 Pure hypercholesterolemia, unspecified; K21.9 Gastro-esophageal reflux disease without esophagitis; I10 Essential (primary) hypertension; E11.9 Type 2 diabetes mellitus without complications; J45.909 Unspecified asthma, uncomplicated; F32.A Depression, unspecified
CPT/HCPCS: 96372; 99284; J1200; J1885; J2765

== ENCOUNTER 2023-11-22 19:33 | Emergency (ER) | payer BC, MEDICAID ==
[~2023-11-22] VITALS: Ht 162.6 cm; Wt 60.9 kg
[2023-11-22 19:55] VITALS: TEMP 98.2
[2023-11-22 20:19] LABS: BASOPHILS # (AUTO) 0.1 X10'3 (0-0.2); BASOPHILS % (AUTO) 0.4 % (0-1); EOSINOPHILS # (AUTO) 0.1 X10'3 (0-0.9); EOSINOPHILS % (AUTO) 0.9 % (0-6); HEMATOCRIT 39.7 % (35.0-45.0); HEMOGLOBIN 13.1 g/dl (12.0-16.0); LYMPHOCYTES # (AUTO) 2.4 X10'3 (1.1-4.8); LYMPHOCYTES % (AUTO) 20.5 % (21-51); MEAN CORPUSCULAR HEMOGLOBIN 31.9 PG (27.0-31.0); MEAN CORPUSCULAR VOLUME 96.8 FL (78-98); MEAN PLATELET VOLUME 8.4 FL (7.4-10.4); MONOCYTES # (AUTO) 0.9 X10'3 (0-0.9); MONOCYTES % (AUTO) 7.2 % (2-12); NEUTROPHILS # (AUTO) 8.5 X10'3 (1.8-7.7); PLATELET COUNT 222 X10'3 (140-440); WHITE BLOOD COUNT 11.9 X10'3 (4.5-11.0)
[2023-11-22 20:38] LABS: ALANINE AMINOTRANSFERASE 43 U/L (12-78); ALBUMIN 3.5 G/DL (3.4-5.0); ALBUMIN/GLOBULIN RATIO 1.3 (1.1-1.5); ALKALINE PHOSPHATASE 94 IU/L (46-116); ANION GAP 12 (8-16); ASPARTATE AMINO TRANSFERASE 20 U/L (10-37); BILIRUBIN,TOTAL 0.2 MG/DL (0.1-1.0); BLOOD UREA NITROGEN 27 MG/DL (7-18); BUN/CREATININE RATIO 18.6 (10.0-20.0); CALCIUM 9.1 MG/DL (8.5-10.1); CHLORIDE 107 MMOL/L (99-107); CREATININE 1.45 MG/DL (0.40-0.90); GLUCOSE 195 MG/DL (70-104); POTASSIUM 4.9 MMOL/L (3.5-5.1); SODIUM 140 MMOL/L (135-145); TOTAL CARBON DIOXIDE 20.6 MMOL/L (24-32); TOTAL PROTEIN 6.2 G/DL (6.4-8.2); eCRCL 35 ML/MIN; eGFR 37 ML/MIN
[2023-11-22 20:47] LABS: PRO BRAIN NATRIURETIC PEPTIDE 52 PG/ML (0-125)
[2023-11-22] MEDS ORDERED: HYDROcodone/acetaminophen 5mg/325mg tablet PO ONE (22:30)
[2023-11-22] MEDS ORDERED: ketorolac trometh inj. 60 MG/2 ML VIAL IM ONE (22:30)
[2023-11-22] MEDS ORDERED: dexamethasone sod phosphate 10mg/ml inj IM STA (22:30)
[2023-11-22] MEDS ORDERED: LIDO700A32 TOP (22:38)
[2023-11-22 22:56] VITALS: BP 139/67; PULSE 78; RESP 16; O2SAT 98
== END 2023-11-22 22:58 | disposition home or self-care (01) ==
LOC: ER 19:34
DX: R07.89 Other chest pain (principal); G43.909 Migraine, unspecified, not intractable, without status migrainosus; E78.00 Pure hypercholesterolemia, unspecified; J45.909 Unspecified asthma, uncomplicated; I10 Essential (primary) hypertension; F31.9 Bipolar disorder, unspecified; K21.9 Gastro-esophageal reflux disease without esophagitis; Z59.00 Homelessness unspecified; Z88.0 Allergy status to penicillin; Z91.018 Allergy to other foods; Z79.899 Other long term (current) drug therapy; Z79.1 Long term (current) use of non-steroidal anti-inflammatories (NSAID); Z79.2 Long term (current) use of antibiotics
CPT/HCPCS: 36415; 71045; 80053; 83880; 84484; 85025; 93005; 96372; 99285; J1100; J1885

== ENCOUNTER 2023-12-10 17:00 | Emergency (ER) | payer BC, MEDICAID ==
[~2023-12-10] VITALS: Ht 162.6 cm; Wt 62.7 kg
[~2023-12-10 17:00] MED LIST changes: +LIDO700A32 TOP; -OXYB5TAB17 PO; +OXYB5TAB21 PO
[2023-12-10 17:06] VITALS: BP 160/83; PULSE 103; RESP 18; TEMP 97.8; O2SAT 100
[2023-12-10] MEDS: TETanus/Pertussis (Acell)/Diphther VAC/PF (Tdap-Adult) 0.5ml syringe IMVAC ONE (17:36)
[2023-12-10] MEDS: bacitracin 15gm ointment TP ONE (17:36)
[2023-12-10] MEDS: LIDOCAINE 1%/EPI 1:100,000 inj. 10 ML multi-dose vial SQ ONE (17:36)
[2023-12-10] MEDS: LIDOcaine 1% W/epiNEPHrine 1:100,000 20ml vial SQ ONE (17:37)
== END 2023-12-10 18:05 | disposition home or self-care (01) ==
LOC: ER 17:03
DX: S61.216A Laceration without foreign body of right little finger without damage to nail, initial encounter (principal); G43.909 Migraine, unspecified, not intractable, without status migrainosus; Z88.0 Allergy status to penicillin; Z91.018 Allergy to other foods; Z79.899 Other long term (current) drug therapy; Z79.1 Long term (current) use of non-steroidal anti-inflammatories (NSAID); Z90.49 Acquired absence of other specified parts of digestive tract; W23.0XXA Caught, crushed, jammed, or pinched between moving objects, initial encounter; Y93.89 Activity, other specified; Y92.89 Other specified places as the place of occurrence of the external cause; Y99.8 Other external cause status
CPT/HCPCS: 12001; 90471; 90715; 99283; A6449

== ENCOUNTER 2024-10-04 21:38 | Emergency (ER) | payer BC, MEDICAID ==
[~2024-10-04] VITALS: Ht 162.6 cm; Wt 71.2 kg
[~2024-10-04 21:38] MED LIST changes: +ONDA-243 PO; -ONDA4TAB12 PO
[2024-10-04 21:47] VITALS: BP 162/106; PULSE 99; RESP 16; O2SAT 100
[2024-10-04 23:20] VITALS: TEMP 99.4
== END 2024-10-04 23:21 | disposition home or self-care (01) ==
LOC: ER 21:38
DX: S90.121A Contusion of right lesser toe(s) without damage to nail, initial encounter (principal); G43.909 Migraine, unspecified, not intractable, without status migrainosus; E78.00 Pure hypercholesterolemia, unspecified; I10 Essential (primary) hypertension; J45.909 Unspecified asthma, uncomplicated; K21.9 Gastro-esophageal reflux disease without esophagitis; E11.9 Type 2 diabetes mellitus without complications; E07.9 Disorder of thyroid, unspecified; G89.29 Other chronic pain; M54.9 Dorsalgia, unspecified; F32.A Depression, unspecified; Z90.49 Acquired absence of other specified parts of digestive tract; Z56.0 Unemployment, unspecified; Z88.0 Allergy status to penicillin; Z91.018 Allergy to other foods; Z79.52 Long term (current) use of systemic steroids; Z79.899 Other long term (current) drug therapy; Z79.84 Long term (current) use of oral hypoglycemic drugs; X58.XXXA Exposure to other specified factors, initial encounter; Y93.01 Activity, walking, marching and hiking; Y92.89 Other specified places as the place of occurrence of the external cause; Y99.8 Other external cause status
CPT/HCPCS: 73630; 99283; L3260

== ENCOUNTER 2024-11-18 14:56 | Emergency (ER) | payer BC, MEDICAID ==
[~2024-11-18] VITALS: Ht 162.6 cm; Wt 72.9 kg
[2024-11-18 15:12] VITALS: BP 160/86; PULSE 90; RESP 18; TEMP 97.2; O2SAT 95
[2024-11-18] MEDS: ibuprofen tablet 400 MG TABLET PO ONE (17:53)
== END 2024-11-18 17:59 | disposition home or self-care (01) ==
LOC: ER 14:57
DX: M25.512 Pain in left shoulder (principal); E11.9 Type 2 diabetes mellitus without complications; E78.00 Pure hypercholesterolemia, unspecified; K21.9 Gastro-esophageal reflux disease without esophagitis; J45.909 Unspecified asthma, uncomplicated; I10 Essential (primary) hypertension; F32.A Depression, unspecified; E07.9 Disorder of thyroid, unspecified; G89.29 Other chronic pain; M54.9 Dorsalgia, unspecified; G43.909 Migraine, unspecified, not intractable, without status migrainosus; Z88.0 Allergy status to penicillin; Z90.49 Acquired absence of other specified parts of digestive tract; Z79.899 Other long term (current) drug therapy; Z79.1 Long term (current) use of non-steroidal anti-inflammatories (NSAID); Z79.84 Long term (current) use of oral hypoglycemic drugs; Z56.0 Unemployment, unspecified
CPT/HCPCS: 73030; 99283; A4565

== ENCOUNTER 2024-11-28 13:35 | Emergency (ER) | payer BC, MEDICAID ==
[~2024-11-28] VITALS: Ht 162.6 cm; Wt 72.7 kg
[2024-11-28 13:37] VITALS: BP 191/109; PULSE 104; RESP 16; TEMP 98.1; O2SAT 94
[2024-11-28] MEDS ORDERED: NIRM1TAB9 PO (14:40)
== END 2024-11-28 14:58 | disposition home or self-care (01) ==
LOC: ER 13:35
DX: U07.1 COVID-19 (principal); F10.90 Alcohol use, unspecified, uncomplicated; Z88.0 Allergy status to penicillin; Z88.8 Allergy status to other drugs, medicaments and biological substances; Y90.9 Presence of alcohol in blood, level not specified
CPT/HCPCS: 99283

== ENCOUNTER 2025-01-10 14:48 | Emergency (ER) | payer BC, MEDICAID ==
[~2025-01-10] VITALS: Ht 162.6 cm; Wt 74.0 kg
[~2025-01-10 14:48] MED LIST changes: +NIRM1TAB9 PO
[2025-01-10 19:52] LABS: BASOPHILS # (AUTO) 0.1 X10'3 (0-0.2); BASOPHILS % (AUTO) 0.9 % (0-1); EOSINOPHILS # (AUTO) 0.1 X10'3 (0-0.9); EOSINOPHILS % (AUTO) 1.8 % (0-6); HEMATOCRIT 39.6 % (35.0-45.0); HEMOGLOBIN 12.8 g/dl (12.0-16.0); LYMPHOCYTES # (AUTO) 1.5 X10'3 (1.1-4.8); LYMPHOCYTES % (AUTO) 26.3 % (21-51); MEAN CORPUSCULAR HEMOGLOBIN 30.2 PG (27.0-31.0); MEAN CORPUSCULAR HGB CONC 32.4 g/dL (33.0-36.5); MEAN CORPUSCULAR VOLUME 93.2 FL (78-98); MEAN PLATELET VOLUME 7.8 FL (7.4-10.4); MONOCYTES # (AUTO) 0.6 X10'3 (0-0.9); MONOCYTES % (AUTO) 9.7 % (2-12); NEUTROPHILS # (AUTO) 3.5 X10'3 (1.8-7.7); NEUTROPHILS % (AUTO) 61.3 % (42-75); PLATELET COUNT 229 X10'3 (140-440); RED BLOOD COUNT 4.25 X10'6 (4.20-5.60); RED CELL DISTRIBUTION WIDTH 16.6 % (11.5-14.5); WHITE BLOOD COUNT 5.7 X10'3 (4.5-11.0)
[2025-01-10] MEDS: metoclopramide 5 mg/ml inj IV ONE (20:06)
[2025-01-10] MEDS: ketorolac trometh 15mg/ml vial 15 MG/ML ML IV ONE (20:08)
[2025-01-10 20:09] LABS: ALBUMIN 3.4 G/DL (3.4-5.0); ANION GAP 12 (8-16); BLOOD UREA NITROGEN 33 MG/DL (7-18); BUN/CREATININE RATIO 23.9 (10.0-20.0); CALCIUM 9.2 MG/DL (8.5-10.1); CHLORIDE 106 MMOL/L (99-107); CREATININE 1.38 MG/DL (0.40-0.90); GLUCOSE 227 MG/DL (70-104); MAGNESIUM 1.4 MG/DL (1.5-2.4); POTASSIUM 4.6 MMOL/L (3.5-5.1); SODIUM 143 MMOL/L (135-145); TOTAL CARBON DIOXIDE 25.5 MMOL/L (24-32); eCRCL 37 ML/MIN; eGFR 39 ML/MIN
[2025-01-10] MEDS: normal saline 1000ml 1,000 ML IV ONE (20:12)
[2025-01-10] MEDS: hydrALAZINE 20mg/ml inj. IV ONE (20:12)
[2025-01-10 20:30] LABS: BILIRUBIN,URINE NEGATIVE (Neg); CLARITY,URINE CLEAR (Clear); COLOR,URINE YELLOW (Yellow); GLUCOSE, URINE 100 mg/dl (Neg); KETONES,URINE NEGATIVE (Neg); LEUKOCYTE ESTERASE ,URINE NEGATIVE (Neg); NITRITES, URINE NEGATIVE (Neg); OCCULT BLOOD,URINE NEGATIVE (Neg); PROTEIN,URINE 100 mg/dl (Neg); UROBILINOGEN,URINE 0.2 E.U/dL (0.2-1.0)
[2025-01-10 20:40] LABS: UA COLLECTION TYPE CLN CATCH MIDSTREAM
[2025-01-10 20:47] LABS: BACTERIA,URINE 1+ /HPF (Neg); MUCUS STRANDS FEW /LPF (Neg); RBC,URINE NONE SEEN /HPF (0-2); SQUAMOUS EPITHELIAL CELL,UR MANY /LPF (FEW); WBC,URINE 0-4 /HPF (0-4)
[2025-01-10] MEDS: magnesium sulf-water 2g/50mL 50 ML IV ONE (20:58)
[2025-01-10] MEDS ORDERED: dexamethasone sod phosphate 10mg/ml inj IM STA (21:16)
[2025-01-10] MEDS: BUPIVAcaine/PF 7.5 mg/ml (0.75%) 30ml vial IJ ONE (21:20)
[2025-01-10] MEDS: dexamethasone sod phosphate 10mg/ml inj IM STA (22:32)
[2025-01-10 23:06] VITALS: BP 158/93; PULSE 116; RESP 16; TEMP 98.3; O2SAT 100
== END 2025-01-10 23:08 | disposition home or self-care (01) ==
LOC: ER 14:49
DX: M54.81 Occipital neuralgia (principal); I10 Essential (primary) hypertension; E11.9 Type 2 diabetes mellitus without complications; E78.00 Pure hypercholesterolemia, unspecified; G43.909 Migraine, unspecified, not intractable, without status migrainosus; J45.909 Unspecified asthma, uncomplicated; G89.29 Other chronic pain; M54.9 Dorsalgia, unspecified; F32.A Depression, unspecified; K21.9 Gastro-esophageal reflux disease without esophagitis; Z88.0 Allergy status to penicillin; Z90.49 Acquired absence of other specified parts of digestive tract; Z79.899 Other long term (current) drug therapy; Z56.0 Unemployment, unspecified
CPT/HCPCS: 36415; 64450; 70450; 71045; 80048; 81001; 83735; 84484; 85025; 93005; 96361; 96365; 96366; 96375; 99285; J0360; J1885; J2765; J7030

== ENCOUNTER 2025-02-02 16:36 | Emergency (ER) | payer BC, MEDICAID ==
[~2025-02-02] VITALS: Ht 154.9 cm; Wt 75.0 kg
[2025-02-02 16:38] VITALS: BP 146/88; PULSE 96; TEMP 97; O2SAT 98
[2025-02-02] MEDS ORDERED: CYCL-1 PO (17:58)
[2025-02-02] MEDS ORDERED: HYDR-3973 PO (17:58)
[2025-02-02] MEDS: ondansetron 4mg rapidly disintigrating tab PO ONE (18:21)
[2025-02-02] MEDS: cyclobenzaprine 10mg tablet PO ONE (18:21)
[2025-02-02] MEDS: HYDROcodone/acetaminophen 10/325mg tab PO ONE (18:22)
[2025-02-02 18:23] VITALS: RESP 16
[2025-02-02] MEDS: ketorolac trometh 30MG/ML vial 30 MG/ML VIAL IM ONE (18:23)
== END 2025-02-02 18:29 | disposition home or self-care (01) ==
LOC: ER 16:37
DX: S39.012A Strain of muscle, fascia and tendon of lower back, initial encounter (principal); E11.9 Type 2 diabetes mellitus without complications; E78.00 Pure hypercholesterolemia, unspecified; I10 Essential (primary) hypertension; J45.909 Unspecified asthma, uncomplicated; F32.A Depression, unspecified; K21.9 Gastro-esophageal reflux disease without esophagitis; Z88.0 Allergy status to penicillin; Z88.8 Allergy status to other drugs, medicaments and biological substances; Z90.49 Acquired absence of other specified parts of digestive tract; X58.XXXA Exposure to other specified factors, initial encounter; Y93.89 Activity, other specified; Y92.89 Other specified places as the place of occurrence of the external cause; Y99.8 Other external cause status
CPT/HCPCS: 96372; 99284; J1885

== ENCOUNTER 2025-06-01 09:07 | Emergency (ER) | payer BC, MEDICAID ==
[~2025-06-01] VITALS: Ht 162.6 cm; Wt 176.9 kg
[~2025-06-01 09:07] MED LIST changes: +CYCL-1 PO; +LIDO-52 TOP; -LIDO700A32 TOP
[2025-06-01 09:12] VITALS: BP 134/79; PULSE 74; RESP 16; O2SAT 99
--- NOTE | 2025-06-01 09:47 | RADIOLOGY REPORT ---
PROCEDURE: Left shoulder radiographs. INDICATION: LT.Shoulder Pain TECHNIQUE: 2 views of the left shoulder were obtained. COMPARISON: None. FINDINGS: There is no evidence of fracture or dislocation. Joint spaces are maintained. The soft tis sues are unremarkable. IMPRESSION: 1. No fracture or dislocation.
--- NOTE | 2025-06-01 11:07 | Physician Documentation ---
History of Present Illness ~ Chief Complaint: Shoulder pain Stated Complaint: L SHOULDER PAIN Time Seen by MD: 11:01 Primary Medical Doctor: [facility]- Zayra Art HPI Patient is a 65-year-old female that presents to the emergency department for evaluation of left-sided shoulder pain sustained several days ago while she was lifting her mattress. Reports that she lives that the corner of her mattress and felt a pop in her shoulder. German she says her pain has been fairly consistent and somewhat progressive. Patient reports that she has been taking Tylenol with some relief. Tetanus within 5 years?: Yes Medication Reconciliation Allergies: Coded Allergies: Penicillins (Verified Allergy, Intermediate, 06/01/25) onion (Verified Allergy, Unknown, 06/01/25) Scheduled Amitriptyline Hcl* (Elavil*), 1 TAB PO HS, (Reported) Atorvastatin Calcium (Atorvastatin Calcium), 1 TAB PO DAILY, (Reported) Baclofen (Baclofen), 1 TAB PO TID, (Reported) Benazepril Hcl* (Lotensin*), 1 TAB PO DAILY, (Reported) Budesonide/Formoterol Fumarate (Budesonide-Formoterol 80-4.5), 1 PUFF PO BID, (Reported) Cyclobenzaprine* (Cyclobenzaprine*), 1 TAB PO HS Diltiazem Hcl (Diltiazem Er), 1 CAP PO DAILY, (Reported) Fexofenadine HCl (Allergy Relief), 1 TAB PO DAILY, (Reported) Gabapentin (Neurontin), 2 CAP PO TID, (Reported) Glipizide (Glipizide), 0.5 TAB PO DAILY, (Reported) Ibuprofen (Ibuprofen), 1 TAB PO Q8H Levothyroxine Sodium (Levothyroxine Sodium), 1 TAB PO DAILY, (Reported) Lidocaine (Lidoderm), 1 PATCH TOP DAILY Lidocaine (Lidoderm), 1 PATCH TOP DAILY Metformin Hcl* (Metformin ER*), 4 TAB PO QPM, (Reported) Metoprolol Tartrate (Metoprolol Tartrate), 1 TAB PO DAILY, (Reported) Nirmatrelvir/Ritonavir (Paxlovid 300-100 mg Dose Pack), 1 TAB PO BID Omeprazole (Omeprazole), 1 CAP PO DAILY, (Reported) Oxybutynin Chloride (Oxybutynin Chloride), 1 TAB PO BID, (Reported) Sertraline HCl (Sertraline HCl), 1 TAB PO DAILY, (Reported) Trazodone HCl (Trazodone HCl), 2 TAB PO HS, (Reported) Scheduled PRN Lorazepam (Ativan), 1 TAB PO Q8H PRN for muscle spasms Meclizine HCl (Meclizine HCl), 1 TABLET PO TID PRN PRN for dizziness/vertigo ONDANSETRON ODT 4mg tablet (Ondansetron Odt), 1 TABLET PO Q6H PRN for nausea/vomiting Past Medical History Past Medical History: Headache, Migraine, Allergic Rhinitis, Arrhythmia, High Cholesterol, Hypertension, Asthma, GERD, GI Bleed, Diabetes, Thyroid (unspecified), *MUSCULOSKELETAL*, Chronic Pain, Chronic Back Pain, Depression Past Surgical History: cholecystectomy, orthopedic surgeries Other Past Surgical History: breast reduction and bone spurs of shoulder and neck Patient History: Patient reports no known family medical history. Alcohol Use: Sober Drug Use: none Lives with: Family Lives In: Home Occupation: unemployed Review of Systems ROS As stated above in the HPI, otherwise all systems are reviewed and negative. Physical Exam Vital Signs: Temperature: 97.2, Source: Oral, Heart Rate: 74, Respiratory Rate: 16, BP: 134/79, Pulse Oximetry: 99, Weight: 176.900 Oxygen Flow Rate: 0 Physical Exam VITALS: Reviewed and as above. GENERAL: Alert, no apparent distress. HEENT: Normocephalic, atraumatic, PERRL, EOMI, dry mucosa, no erythema RESPIRATORY: Lungs clear, normal breath sounds, no respiratory distress. CHEST: No accessory muscle use, no retractions CV: Regular rate, rhythm, no edema, no murmur, No: JVD GI: Soft, non-tender, bowels sounds present, no rebound, guarding, or rigidity BACK: No CVA tenderness, or swelling MUSCULOSKELETAL No deformities, no edema, pain with exam and ROM to left shoulder SKIN: Warm and dry, no rash NEURO: Oriented x4, No motor or sensory deficit PSYCH: Normal mood and affect, no agitation Progress Results/Orders Results/Orders Orders - DIAMANTE MONTANO * Arm Sling To Be Placed Overn (06/01/25 11:04) Vital Signs 06/01/25 09:12 Temp 97.2 Pulse 74 Resp 16 B/P (MAP) 134/79 Pulse Ox 99 O2 Flow Rate 0 Medical Decision Making Findings Patient presents with pain to the left shoulder. Insert for cardiac involvement. Given history, exam and workup patient likely has a sprain and/or soft tissue injury. I have low suspicion for fracture, dislocation, significant ligamentous injury, septic arthritis, gout flare, new autoimmune arthropathy, or gonococcal arthropathy based on negative radiologic findings performed the emergency department today, placed in a sling for comfort medications prescribed to assist in her healing and managing discomfort over the next couple days until she follows up with her primary care provider and/or orthopedics. Precautions were discussed with patient. Differential Dx:Considerations: Include: AC separation, Adhesive capsulitis, arthritis, Bicipital tendonitis, Calcific tendonitis, Cervical disc disease, Contusion, Dislocation, Fracture: Humerus, Fracture: Scapula, Fracture: Clavicle, Gallbladder Disease, Hematoma, Impingement syndrome, Myocardial infarction, Neurovascular Injury, Rotator cuff injury, SC dislocation, Sprain, Subacromial bursitis, other Departure Disposition: HOME / SELF CARE / HOMELESS Impression: Primary Impression: Shoulder pain Additional Impressions: Shoulder joint pain Strain of shoulder Condition: Stable Discharge Instructions: Shoulder Pain, Shoulder Pain, [id number] Additional Instructions: Use in for evaluation of left shoulder pain sustained after moving a mattress several days ago. Bjorn imaging was negative for fracture or dislocation at this time. Placed in a sling for comfort provided with prescribed medication to manage her discomfort over the next couple of days until he follow up with her primary care provider. Return to the emergency department if you have any worsening or recurrent symptoms or any additional concerning symptoms that we discussed here today. Referrals: NO PRIMARY CARE PROVIDER (PCP) Prescriptions Baclofen (Baclofen) 10 Mg Tablet 1 TAB PO Q8H for 10 Days, #30 TAB 0 Refills Prov: DIAMANTE MONTANO 06/01/25 Education Educated: Patient Educated regarding: treatment, need for follow up Signature Scribe Signature: . Attestation: Scribed for Diamante Montano by DE Lutz . 06/01/25 11:14 DIAMANTE MONTANO Jun 01, 2025 11:07
[2025-06-01] MEDS ORDERED: BACL-11 PO (11:14)
[2025-06-01 11:20] VITALS: TEMP 97.2
== END 2025-06-01 11:24 | disposition home or self-care (01) ==
LOC: ER 09:07
DX: S46.912A Strain of unspecified muscle, fascia and tendon at shoulder and upper arm level, left arm, initial encounter (principal); E11.9 Type 2 diabetes mellitus without complications; E78.00 Pure hypercholesterolemia, unspecified; I10 Essential (primary) hypertension; J45.909 Unspecified asthma, uncomplicated; F10.90 Alcohol use, unspecified, uncomplicated; Z88.0 Allergy status to penicillin; Z88.8 Allergy status to other drugs, medicaments and biological substances; Z90.49 Acquired absence of other specified parts of digestive tract; X58.XXXA Exposure to other specified factors, initial encounter; Y93.89 Activity, other specified; Y92.89 Other specified places as the place of occurrence of the external cause; Y99.8 Other external cause status; Y90.9 Presence of alcohol in blood, level not specified
CPT/HCPCS: 73030; 99284; A4565

== ENCOUNTER 2025-07-20 21:25 | Emergency (ER) | payer BC, MEDICAID ==
[~2025-07-20] VITALS: Ht 162.6 cm; Wt 76.4 kg
[~2025-07-20 21:25] MED LIST changes: +BACL-11 PO; +NIRM1TAB13 PO; -NIRM1TAB9 PO
[2025-07-20 21:45] VITALS: TEMP 98.4
[2025-07-20 22:01] LABS: MEAN PLATELET VOLUME 8.3 FL (7.4-10.4); RED CELL DISTRIBUTION WIDTH 14.8 % (11.5-14.5)
[2025-07-20 22:16] LABS: CREATININE 1.88 MG/DL (0.40-0.90); TOTAL CARBON DIOXIDE 24.9 MMOL/L (24-32); eCRCL 26 ML/MIN; eGFR 27 ML/MIN
--- NOTE | 2025-07-20 22:37 | ELECTROCARDIOGRAPH REPORT ---
[facility] Test Date: 2025-07-20 Test Time: 22:35:11 Pat Name: MARQUEZ AGUSTIN Department: [facility] Patient ID: [facility]-[id number] Room: Gender: F Payment Processor: : 1960 Requested By: TREVIN MATHEWS Order Number: [id number] Reading MD: Dr. Moris Daniel Measurements Intervals [place] Rate: 127 P: 30 [place]: 142 QRS: 3 QRSD: 67 T: 26 QT: 291 QTc: 424 Interpretive Statements Sinus tachycardia Ventricular premature complex Aberrant complex Low voltage, precordial leads Electronically Signed On 07-29-2025 21:51:[address] Moris Danile Please click the below link to view image of tracing.
[2025-07-20] MEDS ORDERED: normal saline 1000ML IV soln IVB ONE (23:45)
--- NOTE | 2025-07-20 23:56 | Physician Documentation ---
History of Present Illness ~ Chief Complaint: Abdominal Pain w/vomiting Stated Complaint: SIDE/ABD PAIN Time Seen by MD: 23:43 Primary Medical Doctor: [facility]- Zayra Art HPI Patient presents to the emergency room with one day history of nausea and vomiting. No prior instances. No sick contacts. She states she has not had a bowel movement in two days and does endorse history of constipation. Three episodes of vomiting. Subjective fevers Medication Reconciliation Allergies: Coded Allergies: Penicillins (Verified Allergy, Intermediate, 06/01/25) onion (Verified Allergy, Unknown, 06/01/25) Scheduled Amitriptyline Hcl* (Elavil*), 1 TAB PO HS, (Reported) Atorvastatin Calcium (Atorvastatin Calcium), 1 TAB PO DAILY, (Reported) Baclofen (Baclofen), 1 TAB PO TID, (Reported) Baclofen (Baclofen), 1 TAB PO Q8H Benazepril Hcl* (Lotensin*), 1 TAB PO DAILY, (Reported) Budesonide/Formoterol Fumarate (Budesonide-Formoterol 80-4.5), 1 PUFF PO BID, (Reported) Cyclobenzaprine* (Cyclobenzaprine*), 1 TAB PO HS Diltiazem Hcl (Diltiazem Er), 1 CAP PO DAILY, (Reported) Fexofenadine HCl (Allergy Relief), 1 TAB PO DAILY, (Reported) Gabapentin (Neurontin), 2 CAP PO TID, (Reported) Glipizide (Glipizide), 0.5 TAB PO DAILY, (Reported) Ibuprofen (Ibuprofen), 1 TAB PO Q8H Levothyroxine Sodium (Levothyroxine Sodium), 1 TAB PO DAILY, (Reported) Lidocaine (Lidoderm), 1 PATCH TOP DAILY Lidocaine (Lidoderm), 1 PATCH TOP DAILY Metformin Hcl* (Metformin ER*), 4 TAB PO QPM, (Reported) Metoprolol Tartrate (Metoprolol Tartrate), 1 TAB PO DAILY, (Reported) Nirmatrelvir/Ritonavir (Paxlovid 300-100 mg Dose Pack), 1 TAB PO BID Omeprazole (Omeprazole), 1 CAP PO DAILY, (Reported) Oxybutynin Chloride (Oxybutynin Chloride), 1 TAB PO BID, (Reported) Sertraline HCl (Sertraline HCl), 1 TAB PO DAILY, (Reported) Trazodone HCl (Trazodone HCl), 2 TAB PO HS, (Reported) Scheduled PRN Lorazepam (Ativan), 1 TAB PO Q8H PRN for muscle spasms Meclizine HCl (Meclizine HCl), 1 TABLET PO TID PRN PRN for dizziness/vertigo ONDANSETRON ODT 4mg tablet (Ondansetron Odt), 1 TABLET PO Q6H PRN for nausea/vomiting Past Medical History Past Medical History: Headache, Migraine, Allergic Rhinitis, Arrhythmia, High Cholesterol, Hypertension, Asthma, GERD, GI Bleed, Diabetes, Thyroid (unspecified), *MUSCULOSKELETAL*, Chronic Pain, Chronic Back Pain, Depression Past Surgical History: cholecystectomy, orthopedic surgeries Other Past Surgical History: breast reduction and bone spurs of shoulder and neck Patient History: Patient reports no known family medical history. Alcohol Use: Sober Drug Use: none Lives with: Family Lives In: Home Occupation: unemployed Review of Systems ROS All review of systems negative except as per HPI Physical Exam Vital Signs: Temperature: 98.4, Heart Rate: 116, Respiratory Rate: 16, BP: 166/116, Pulse Oximetry: 98, Weight: 76.400 Oxygen Flow Rate: 0 Physical Exam General: Patient is awake, alert, oriented x4 in mild distress Head: Normocephalic and atraumatic. Eyes: Conjunctival normal. EOMI. PERRL. ENT: Mucous membranes moist. Neck: Supple, trachea is midline. Chest: Clear to auscultation bilaterally without rales, rhonchi, or wheezes. There is no accessory muscle use or retractions. Cardiac: Tachycardic and regular without murmurs, gallops, or rubs. Abd: Soft, nondistended, diffuse tenderness Progress Results/Orders Results/Orders Orders - FAMILIA MATHEWS MD Urinalysis, Cult If Indicated (07/20/25 21:28) Hcg, Ur Ql (07/20/25 21:28) Ct Abdomen Pelvis (07/21/25 00:15) Completed Orders - FAMILIA MATHEWS MD Cbc/Diff (07/20/25 21:28) Lipase (07/20/25 21:28) CMP (07/20/25 21:28) Electrocardiogram (07/20/25 22:30) Calcium Gluc 1gm/50ml Nacl,Iso (Calcium (07/20/25 23:45) Sodium Chloride 0.45% (Sodium Chloride 0 (07/20/25 23:45) Normal Saline 1000ml (0.9% Sodium Chlori (07/20/25 23:50) Ondansetron Inj. (Zofran 4mg/2ml Vial) (07/20/25 23:50) Acetaminophen 1,000mg/100ml Iv (Ofirmev (07/21/25 00:00) Ct Abdomen Pelvis (07/21/25 00:15) BMP (07/21/25 01:59) Medications Received in ER Medications (Trade) Dose Ordered Sig/Herberth Route PRN Reason Start Time Stop Time Status Last Admin Dose Admin Calcium Gluconate 50 ml @ 50 mls/hr ONCE ONCE IV 07/20/25 23:45 07/21/25 00:44 DC 07/21/25 01:21 50 MLS/HR Sodium Chloride 1,000 ml @ 1,000 mls/hr Q1H ONCE IV 07/20/25 23:45 07/21/25 00:44 DC 07/21/25 01:21 1,000 MLS/HR Sodium Chloride 1,000 ml @ 1,000 mls/hr ONCE ONCE IV 07/20/25 23:50 07/21/25 00:49 DC 07/21/25 00:42 1,000 MLS/HR (Zofran 4mg/2ml vial) 8 mg ONCE ONCE IV 07/20/25 23:50 07/20/25 23:52 DC 07/21/25 00:41 8 MG Acetaminophen 100 ml @ 400 mls/hr ONCE ONCE IV 07/21/25 00:00 07/21/25 00:14 DC 07/21/25 00:42 400 MLS/HR Vital Signs 07/20/25 07/20/25 07/21/25 07/21/25 21:45 23:27 00:49 00:52 Temp 98.4 Pulse 117 116 79 Resp 16 16 16 16 B/P (MAP) 184/110 166/116 (133) 170/110 (130) Pulse Ox 100 98 97 O2 Flow Rate 0 0 0 07/21/25 07/21/25 02:00 02:31 Pulse 114 112 Resp 16 16 B/P (MAP) 151/102 (118) 162/102 (122) Pulse Ox 93 93 O2 Flow Rate 0 0 Laboratory Tests Test 07/20/25 21:42 07/21/25 02:07 White Blood Count 6.8 Red Blood Count 4.28 Hemoglobin 13.1 Hematocrit 39.4 Mean Corpuscular Volume 92.1 Mean Corpuscular Hemoglobin 30.7 Mean Corpuscular Hemoglobin Concent 33.3 Red Cell Distribution Width 14.8 H Platelet Count 202 Mean Platelet Volume 8.3 Neutrophils (%) (Auto) 63.2 Lymphocytes (%) (Auto) 27.2 Monocytes (%) (Auto) 7.6 Eosinophils (%) (Auto) 1.2 Basophils (%) (Auto) 0.8 Neutrophils # (Auto) 4.3 Lymphocytes # (Auto) 1.8 Monocytes # (Auto) 0.5 Eosinophils # (Auto) 0.1 Basophils # (Auto) 0.1 CBC Comment Sodium Level 146 H 143 Potassium Level 6.1 *H 5.7 H Chloride Level 110 H 111 H Carbon Dioxide Level 24.9 24.2 Anion Gap 11 8 Blood Urea Nitrogen 28 H 27 H Creatinine 1.88 H 1.70 H Estimated GFR/1.73 m2 27 30 BUN/Creatinine Ratio 14.9 15.9 Glucose Level 135 H 130 H Calcium Level 9.6 8.8 Total Bilirubin 0.6 Aspartate Amino Transf (AST/SGOT) 18 Alanine Aminotransferase (ALT/SGPT) 23 Alkaline Phosphatase 135 H Total Protein 7.1 Albumin 3.6 3.0 L Globulin 3.5 Albumin/Globulin Ratio 1.0 L Lipase 29 Chemistry Comments EKG/XRAY/CT/US/VASC/MRI EKG : Additional Comment EKG interpreted by myself shows time of 12/17/2034, rate 127, sinus tachycardia, normal axis, no ST changes Medical Decision Making Findings Patient presents to the emergency room with nausea vomiting abdominal pain. Differentials include but are not limited to cholecystitis pancreatitis gastritis viral syndrome small-bowel obstruction therefore emergent labs and imaging indicated. Labs and imaging are reassuring. Patient is responding to therapy. We are seeing similar presentations in the emergency room lately regarding abdominal pain and vomiting do believe patient is suffering from a virus. ER precautions discussed. Departure Disposition: HOME / SELF CARE / HOMELESS Impression: Primary Impression: Acute gastritis Condition: Stable Discharge Instructions: Viral Gastroenteritis, Adult, [id number] Additional Instructions: Your CT scan and labs were reassuring today. Your potassium was a bit high which has improved with fluids. I encouraged her to continue to drink fluids. Ibuprofen and Tylenol may be taken together for pain. Referrals: NO PRIMARY CARE PROVIDER (PCP) Prescriptions Ondansetron 8mg ODT (Ondansetron Odt) 8 Mg Tab.rapdis 1 TAB PO Q6H for nausea/vomiting for 3 Days, #12 TAB 0 Refills Prov: FAMILIA MATHEWS MD 07/21/25 Signature Scribe Signature: No scribe Attestation: The note accurately reflects work and decisions made by me.Familia Mathews MD 07/21/25 02:35 FAMILIA MATHEWS MD Jul 20, 2025 23:56
[2025-07-21] MEDS: ondansetron/PF 4mg/2ml inj IV ONE (00:41)
[2025-07-21] MEDS: normal saline 1000ml 1,000 ML IV ONE ×2 (00:42→03:44)
[2025-07-21] MEDS: acetaminophen 1,000mg/100ml IV 100 ML IV ONE (00:42)
--- NOTE | 2025-07-21 00:59 | RADIOLOGY REPORT ---
Exam: CT CT ABDOMEN PELVIS History: abd pain COMPARISON: None Technique: Multidetector spiral CT of the abdomen and pelvis was performed from lung bases to pubic symphysis. Intravenous contrast was administered during this examination. Portal venous imaging was obtained. Axial, coronal and sagittal multiplanar reformats were performed by the technologist on a separate workstation. Radiation Dose : 1. Abdomen/Pelvis: CTDIvol 27.74mGy, DLP 1279.13 mGy*cm. Findings: Lung Bases: No acute or significant lung base finding. Normal heart size. No pleural or pericardial effusion. Liver: The liver is normal in size. No focal lesions. Normal hepatic vascular enhancement. Gallbladder and biliary Tree: Gallbladder is surgically absent. Spleen: Unremarkable Pancreas: The pancreas is normal in appearance without focal lesions or abnormal enhancement. Adrenal Glands: Unremarkable Kidneys: No hydronephrosis. Bladder: Unremarkable Bowel: Small hiatal Ascites: Absent Lymphadenopathy: No mesenteric, retroperitoneal or periportal lymphadenopathy. Abdominal wall and Mesentery: Unremarkable. Vasculature: The visualized abdominal aorta is normal in size and caliber. Abdominal and pelvic vessels demonstrate normal enhancement. Pelvic Organs: Unremarkable Musculoskeletal: No aggressive focal bony lesions, acute fractures or dislocation. IMPRESSION: 1. No acute abdominal or pelvic finding. Radiation optimization: All CT scans at this facility use at least one of these dose optimization techniques: automated exposure control mA and/or kV adjustment per patient size (includes targeted exams where dose is matched to clinical indication) or iterative reconstruction.
[2025-07-21] MEDS: CALCIUM GLUC 1gm/50ml NACL,iso 50 ML IV ONE (01:21)
[2025-07-21 02:22] LABS: CREATININE 1.70 MG/DL (0.40-0.90); TOTAL CARBON DIOXIDE 24.2 MMOL/L (24-32); eCRCL 29 ML/MIN; eGFR 30 ML/MIN
[2025-07-21] MEDS ORDERED: ONDA-245 PO (02:34)
[2025-07-21 03:05] LABS: LEUKOCYTE ESTERASE ,URINE NEGATIVE (Neg); NITRITES, URINE NEGATIVE (Neg); OCCULT BLOOD,URINE NEGATIVE (Neg); UA COLLECTION TYPE VOIDED
[2025-07-21 03:06] LABS: URINE HCG NEGATIVE (NEG)
[2025-07-21 03:14] LABS: HYALINE CASTS 0-3 /LPF (NEGATIVE); MUCUS STRANDS FEW /LPF (Neg); SQUAMOUS EPITHELIAL CELL,UR MODERATE /LPF (FEW)
[2025-07-21 03:15] LABS: URIC ACID CRYSTALS FEW /HPF (NEGATIVE)
[2025-07-21 03:57] VITALS: BP 168/106; PULSE 117; RESP 16; O2SAT 99
[2025-07-21] MEDS: metoclopramide 5 mg/ml inj IV ONE (04:02)
== END 2025-07-21 04:08 | disposition home or self-care (01) ==
LOC: ER 21:26
DX: K29.00 Acute gastritis without bleeding (principal); E11.9 Type 2 diabetes mellitus without complications; F32.A Depression, unspecified; K21.9 Gastro-esophageal reflux disease without esophagitis; G43.909 Migraine, unspecified, not intractable, without status migrainosus; E78.00 Pure hypercholesterolemia, unspecified; I10 Essential (primary) hypertension; J45.909 Unspecified asthma, uncomplicated; F10.90 Alcohol use, unspecified, uncomplicated; Z88.0 Allergy status to penicillin; Z88.8 Allergy status to other drugs, medicaments and biological substances; Z90.49 Acquired absence of other specified parts of digestive tract; Y90.9 Presence of alcohol in blood, level not specified
CPT/HCPCS: 36415; 74176; 80048; 80053; 81001; 81025; 83690; 85025; 93005; 96361; 96365; 96367; 96375; 99285; J0131; J0612; J2405; J2765; J3490; J7030